=== PATIENT | female | born 2000 | race Caucasian/White ===

== ENCOUNTER 2019-05-01 20:56 | Emergency (ER) | payer OTHER, SELFPAY ==
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
[2019-05-01 23:10] VITALS: BP 105/74; TEMP 97.9; O2SAT 100
== END 2019-05-01 21:27 | disposition left against medical advice (07) ==
LOC: ER 20:56
DX: Z02.9 Encounter for administrative examinations, unspecified (principal)
CPT/HCPCS: 99281

== ENCOUNTER 2020-03-14 16:07 | Emergency (ER) | payer OTHER, SELFPAY ==
[2020-03-14] MEDS ORDERED: LIDOCAINE 1% 20 ML MDV ONE (16:36)
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
[2020-03-14] MEDS ORDERED: TETANUS & DIPHTHERIA TOX,ADULT 0.5 ML VIAL ONE (17:14)
[2020-03-14 18:08] VITALS: TEMP 98.6
[2020-03-14 18:11] VITALS: BP 103/57; O2SAT 100
== END 2020-03-14 17:45 | disposition home or self-care (01) ==
LOC: ER 16:07
PROC: 0JQ10ZZ Repair Face Subcutaneous Tissue and Fascia, Open Approach (ICD-10-PCS; principal; 2020-03-14)
DX: O9A.312 Physical abuse complicating pregnancy, second trimester (principal); S01.81XA Laceration without foreign body of other part of head, initial encounter; Z3A.21 21 weeks gestation of pregnancy; Y07.03 Male partner, perpetrator of maltreatment and neglect; Z23 Encounter for immunization
CPT/HCPCS: 90471; 90714; 99283

== ENCOUNTER 2022-03-13 17:45 | Emergency (ER) | payer OTHER ==
--- OUTSIDE RECORDS SUMMARY | 2022-03-13 17:52 | XMS REPORT | Continuity of Care Document ---
:2000 Author Organization [facility] t Address [address] [place] [address] Care Team Providers Name Role Phone LITO BUITRAGO Primary Care Physician Unavailable WILLI BARON Attending Clinician Unavailable Ronaldo Falk Attending Clinician RONALDO HERRERA Attending Clinician Unavailable Doctor Unassigned, [place] Attending Clinician Unavailable Lab, Adc Fam Pob I Attending Clinician Unavailable Jignesh Ramirez Attending Clinician JIGNESH ACOSTA Attending Clinician Unavailable CHARIS LOPEZ Attending Clinician Unavailable Charis Anthony Attending Clinician [phone] Visit, MarcialRmchdeborah Nurse Attending Clinician Unavailable Afshan Barry MD Attending Clinician [phone] Ultrasound, Zac-Mfelli Attending Clinician Unavailable Tim Cerna MD Attending Clinician Afshan Barry MD Admitting Clinician [phone] Payers Payer Name Policy Type Policy Number Effective Date Expiration Date [facility] [id number] 2020 CHOICE MEDICAID 00:00:00 MEDICAID OF [place] [id number] 2019 00:00:00 MEDICAID PENDING PENDING 2019 00:00:00 Problems Condition Condition Condition Status Onset Resolution Last Treating Co mments Source Name Details Category Date Date Treatment Clinician Date Need for Need for Disease Active Unive rs HPV HPV 7-20 ity of vaccinatio vaccinatio 00:00: [place] 00 Medical Branch BMI BMI Disease Active Univers 29.0-29.9, 29.0-29.9, 7-20 it y of adult adult 00:00: [place] [facility] Rash of Rash of Disease Active Univers entire entire 7-20 ity of body body 00:00: [place] [address] Medical Branch Screening Screening Disease Active 2019-08 Uni vers examinatio examinatio 1-23 it y of n for STD n for STD [place] ([place]ually (sexually [address] [place] [address] transmitte transmitte Br anch d disease) d disease) Positive Positive Disease Active 2019-08 Overview: Un cyril GBS test GBS test 0-16 Address ity o f 00:00: intrapart [place] [address] um Medical Branch Marijuana Marijuana Disease Active Uni vers use use 6-23 ity of 00:00: [place] [address] Medical Branch BV BV Disease Active Overview: Univer s (bacterial (bacterial 4 Formattin ity of vaginosis) vaginosis) 00:00: g of this [place] 00 note Medical might be Branch different from the original. Identifie d on pap treat 2nd trimester -patient declined symptoms, no treatment at this time Rubella Rubella Disease Active Overview: Univ ers non-immune non-immune 4 Formattin ity of status, status, 00:00: g of this [place] antepartum antepartum 00 note Me dical might be Branch different from the original. Address pp Multiparit Multiparit Disease Active U nivers y y 3-31 ity of 00:00: [place] [address] Medical Branch History of History of Disease Active Overview : Univers 3-31 X1 due to ity of section section 00:00: breech [place] [address] presentat Medical ion A Branch lower abdominal transvers e skin incision Nausea and Nausea and Disease Active U nivers vomiting vomiting 3-31 ity of during during 00:00: [place] [facility] Breech Breech Disease Active Univers presentati presentati 3-26 it y of on, single on, single [place] 00 Medical unspecifie unspecifie Br anch d fetus d fetus 39 weeks 39 weeks Disease Active Unive rs gestation gestation 3-25 ity of of of 00:00: [place] 00 [facility] Supervisio Supervisio Disease Active U nivers n of high n of high 9-12 ity of risk risk 00:00: [place] , , 00 Me dical antepartum antepartum Br anch Rubella Rubella Disease Active Univers non-immune non-immune 8-19 it y of status, status, 00:00: [place] antepartum antepartum 00 Me dicwa Branch High-risk High-risk Disease Active Uni vers , , 8-15 it y of first first 00:00: [place] trimester trimester 00 [facility] Nausea and Nausea and Disease Active U nivers vomiting vomiting 8-15 ity of during during 00:00: [place] 00 [facility] Allergies, Adverse Reactions, Alerts Allergy Allergy Status Severity Reaction(s) Onset Inactive Treating Comm ents Source Name Type Date Date Clinician NO KNOWN Drug Active Univers ALLERGIE Class ity of S [facility] [place] [facility] Social History Social Habit Start Date Stop Date Quantity Comments Source ASSERTION 2019-09-20 University of 00:00:00 [facility] [place] [facility] Exposure to Not sure [facility] SARS-CoV-2 [facility] (event) [place] Tobacco use and 2021-03-08 2021-03-08 Never used Universit y of exposure 00:00:00 00:00:00 [facility] [place] [facility] Alcohol intake 2021-03-08 2021-03-08 Current University 00:00:00 00:00:00 non-drinker of [facility] alcohol (finding) [place] Tobacco Comment 2018-03-20 2018-03-20 education Universit y of 00:00:00 00:00:00 provided [facility] [place] [facility] History of 2015 2017-12-04 Cigarette Smoker Universi ty of tobacco use 00:00:00 00:00:00 [facility] [place] [facility] Sex Assigned At [birth year] Universit y of 00:00:00 00:00:00 [facility] [place] [facility] Smoking Status Start Date Stop Date Source Former smoker 2021-03-08 00:00:00 2021-03-08 00:00:00 Universi ty of [facility] [place] [facility] Medications Ordered Filled Start Stop Current Ordering Indication Dosage Frequency Signature Comments Components Source Medication Medication Date Date Medication? Clinician (SIG) Name Name medroxyPROG 2021- No [id number] 150mg Univers ESTERone 03-08 ity of (DEPO-PROVE 19:45: 19:44 [place] RA) 00 :00 Medical injection Branch 150 mg medroxyPROG 2021- No [id number] 150mg 150 mg, Univers ESTERone 03-08 Intramuscu ity of (DEPO-PROVE 19:45: 19:44 lar, [place] RA) 00 :00 [id number], Medical injection 4 doses, Branch 150 mg First dose on Sun03/08/21 at 1445, Last dose on Sun11/15/21 at 1445, Routine medroxyPROG 2021- No [id number] 150mg Univers ESTERone 03-08 ity of (DEPO-PROVE 19:45: 19:44 [place] RA) 00 :00 Medical injection Branch 150 mg medroxyPROG 2021- No [id number] 150mg 150 mg, Univers ESTERone 03-08 Intramuscu ity of (DEPO-PROVE 19:45: 19:44 lar, [place] RA) 00 :00 [id number], Medical injection 4 doses, Branch 150 mg First dose on Sun03/08/21 at 1445, Last dose on Sun11/15/21 at 1445, Routine predniSONE Yes TAKE Univers 20 mg 7-24 TABLETS BY ity of tablet 00:00: MOUTH TAKE [place] 00 2 DAY 1, Medical AND 1 FOR Branch 4 DAYS triamcinolo Yes APPLY 1 Uni vers ne 7-24 APPLICATIO ity of acetonide 00:00: N ON THE [place] 0.1 % 00 SKIN TWICE Medical ointment A DAY Branch predniSONE Yes TAKE Univers 20 mg 7-24 TABLETS BY ity of tablet 00:00: MOUTH TAKE [place] 00 2 DAY 1, Medical AND 1 FOR Branch 4 DAYS triamcinolo Yes APPLY 1 Uni vers ne 7-24 APPLICATIO ity of acetonide 00:00: N ON THE [place] 0.1 % 00 SKIN TWICE Medical ointment A DAY Branch diphenhydrA 2019-08 Yes [id number] 25mg Take 1 Univers MINE 25 mg 1-02 tablet by ity of tablet 00:00: mouth [place] 00 every 6 Medical (six) Branch hours as needed for Sleep or Itching. HYDROcodone 2019-08 Yes [id number] 1{tbl} Take 1 Un cyril -acetaminop 1-02 tablet by ity of hen 5-325 00:00: mouth [place] mg tablet 00 every 6 Medical (six) Branch hours as needed for Pain (scale 7-10) for up to 10 doses. Indication s: acute pain magnesium 2019-08 Yes [id number] 30mL Take 30 mL Univers hydroxide 1-02 by mouth ity of 400 mg/5 mL 00:00: once daily [place] suspension 00 as needed Medi veronica for Branch Constipati on. simethicone 2019-08 Yes [id number] 160mg Take 2 Univers 80 mg 1-02 tablets by ity of chewable 00:00: mouth [place] tablet 00 after Medical meals and Branch at bedtime as needed for Gas. 2019-08 Yes [id number] 1{tbl} Take 1 Univers vitamin 1-02 tablet by ity of w/FA tablet 00:00: mouth [place] 00 daily. Medical Branch docusate 2019-08 Yes [id number] 240mg Take 1 U nivers calcium 240 1-02 capsule by it y of mg capsule 00:00: mouth once [place] 00 daily as Medical needed for Branch Constipati on. ferrous 2019-08 Yes [id number] 325mg Take 1 Un cyril sulfate 325 1-02 tablet by ity of mg (65 mg 00:00: mouth 2 [place] iron) 00 (two) Medical tablet times Branch daily. ibuprofen 2019-08 Yes [id number] 600mg Take 1 Univers 600 mg 1-02 tablet by ity of tablet 00:00: mouth [place] 00 every 6 Medical (six) Branch hours as needed (Pain). Take with food or milk. diphenhydrA 2019-08 Yes [id number] 25mg Take 1 Univers MINE 25 mg 1-02 tablet by ity of tablet 00:00: mouth [place] 00 every 6 Medical (six) Branch hours as needed for Sleep or Itching. HYDROcodone 2019-08 Yes [id number] 1{tbl} Take 1 Un cyril -acetaminop 1-02 tablet by ity of hen 5-325 00:00: mouth [place] mg tablet 00 every 6 Medical (six) Branch hours as needed for Pain (scale 7-10) for up to 10 doses. Indication s: acute pain magnesium 2019-08 Yes [id number] 30mL Take 30 mL Univers hydroxide 1-02 by mouth ity of 400 mg/5 mL 00:00: once daily [place] suspension 00 as needed Medi veronica for Branch Constipati on. simethicone 2019-08 Yes [id number] 160mg Take 2 Univers 80 mg 1-02 tablets by ity of chewable 00:00: mouth [place] tablet 00 after Medical meals and Branch at bedtime as needed for Gas. 2019-08 Yes [id number] 1{tbl} Take 1 Univers vitamin 1-02 tablet by ity of w/FA tablet 00:00: mouth [place] 00 daily. Medical Branch docusate 2019-08 Yes [id number] 240mg Take 1 U nivers calcium 240 1-02 capsule by it y of mg capsule 00:00: mouth once [place] 00 daily as Medical needed for Branch Constipati on. ferrous 2019-08 Yes [id number] 325mg Take 1 Un cyril sulfate 325 1-02 tablet by ity of mg (65 mg 00:00: mouth 2 [place] iron) 00 (two) Medical tablet times Branch daily. ibuprofen 2019-08 Yes [id number] 600mg Take 1 Univers 600 mg 1-02 tablet by ity of tablet 00:00: mouth [place] 00 every 6 Medical (six) Branch hours as needed (Pain). Take with food or milk. diphenhydrA 2019-08 Yes [id number] 25mg Take 1 Univers MINE 25 mg 1-02 tablet by ity of tablet 00:00: mouth [place] 00 every 6 Medical (six) Branch hours as needed for Sleep or Itching. HYDROcodone 2019-08 Yes [id number] 1{tbl} Take 1 Un cyril -acetaminop 1-02 tablet by ity of hen 5-325 00:00: mouth [place] mg tablet 00 every 6 Medical (six) Branch hours as needed for Pain (scale 7-10) for up to 10 doses. Indication s: acute pain magnesium 2019-08 Yes [id number] 30mL Take 30 mL Univers hydroxide 1-02 by mouth ity of 400 mg/5 mL 00:00: once daily [place] suspension 00 as needed Medi veronica for Branch Constipati on. simethicone 2019-08 Yes [id number] 160mg Take 2 Univers 80 mg 1-02 tablets by ity of chewable 00:00: mouth [place] tablet 00 after Medical meals and Branch at bedtime as needed for Gas. 2019-08 Yes [id number] 1{tbl} Take 1 Univers vitamin 1-02 tablet by ity of w/FA tablet 00:00: mouth [place] 00 daily. Medical Branch docusate 2019-08 Yes [id number] 240mg Take 1 U nivers calcium 240 1-02 capsule by it y of mg capsule 00:00: mouth once [place] 00 daily as Medical needed for Branch Constipati on. ferrous 2019-08 Yes [id number] 325mg Take 1 Un cyril sulfate 325 1-02 tablet by ity of mg (65 mg 00:00: mouth 2 [place] iron) 00 (two) Medical tablet times Branch daily. ibuprofen 2019-08 Yes [id number] 600mg Take 1 Univers 600 mg 1-02 tablet by ity of tablet 00:00: mouth [place] 00 every 6 Medical (six) Branch hours as needed (Pain). Take with food or milk. diphenhydrA 2019-08 Yes [id number] 25mg Take 1 Univers MINE 25 mg 1-02 tablet by ity of tablet 00:00: mouth [place] 00 every 6 Medical (six) Branch hours as needed for Sleep or Itching. HYDROcodone 2019-08 Yes [id number] 1{tbl} Take 1 Un cyril -acetaminop 1-02 tablet by ity of hen 5-325 00:00: mouth [place] mg tablet 00 every 6 Medical (six) Branch hours as needed for Pain (scale 7-10) for up to 10 doses. Indication s: acute pain magnesium 2019-08 Yes [id number] 30mL Take 30 mL Univers hydroxide 1-02 by mouth ity of 400 mg/5 mL 00:00: once daily [place] suspension 00 as needed Medi veronica for Branch Constipati on. simethicone 2019-08 Yes [id number] 160mg Take 2 Univers 80 mg 1-02 tablets by ity of chewable 00:00: mouth [place] tablet 00 after Medical meals and Branch at bedtime as needed for Gas. 2019-08 Yes [id number] 1{tbl} Take 1 Univers vitamin 1-02 tablet by ity of w/FA tablet 00:00: mouth [place] 00 daily. Medical Branch docusate 2019-08 Yes [id number] 240mg Take 1 U nivers calcium 240 1-02 capsule by it y of mg capsule 00:00: mouth once [place] 00 daily as Medical needed for Branch Constipati on. ferrous 2019-08 Yes [id number] 325mg Take 1 Un cyril sulfate 325 1-02 tablet by ity of mg (65 mg 00:00: mouth 2 [place] iron) 00 (two) Medical tablet times Branch daily. ibuprofen 2019-08 Yes [id number] 600mg Take 1 Univers 600 mg 1-02 tablet by ity of tablet 00:00: mouth [place] 00 every 6 Medical (six) Branch hours as needed (Pain). Take with food or milk. diphenhydrA 2019-08 Yes [id number] 25mg Take 1 Univers MINE 25 mg 1-02 tablet by ity of tablet 00:00: mouth [place] 00 every 6 Medical (six) Branch hours as needed for Sleep or Itching. HYDROcodone 2019-08 Yes [id number] 1{tbl} Take 1 Un cyril -acetaminop 1-02 tablet by ity of hen 5-325 00:00: mouth [place] mg tablet 00 every 6 Medical (six) Branch hours as needed for Pain (scale 7-10) for up to 10 doses. Indication s: acute pain magnesium 2019-08 Yes [id number] 30mL Take 30 mL Univers hydroxide 1-02 by mouth ity of 400 mg/5 mL 00:00: once daily [place] suspension 00 as needed Medi veronica for Branch Constipati on. simethicone 2019-08 Yes [id number] 160mg Take 2 Univers 80 mg 1-02 tablets by ity of chewable 00:00: mouth [place] tablet 00 after Medical meals and Branch at bedtime as needed for Gas. 2019-08 Yes [id number] 1{tbl} Take 1 Univers vitamin 1-02 tablet by ity of w/FA tablet 00:00: mouth [place] 00 daily. Medical Branch docusate 2019-08 Yes [id number] 240mg Take 1 U nivers calcium 240 1-02 capsule by it y of mg capsule 00:00: mouth once [place] 00 daily as Medical needed for Branch Constipati on. ferrous 2019-08 Yes [id number] 325mg Take 1 Un cyril sulfate 325 1-02 tablet by ity of mg (65 mg 00:00: mouth 2 [place] iron) 00 (two) Medical tablet times Branch daily. ibuprofen 2019-08 Yes [id number] 600mg Take 1 Univers 600 mg 1-02 tablet by ity of tablet 00:00: mouth [place] 00 every 6 Medical (six) Branch hours as needed (Pain). Take with food or milk. diphenhydrA 2019-08- No [id number] 25mg Take 1 Univers MINE 25 mg 08-0720 tablet by ity of tablet 00:00: 00:00 mouth [place] 00 :00 every 6 Medical (six) Branch hours as needed for Sleep or Itching. HYDROcodone 2019-08- No [id number] 1{tbl} Take 1 U nivers -acetaminop 08-0720 tablet by it y of hen 5-325 00:00: 00:00 mouth [place] mg tablet 00 :00 every 6 Medical (six) Branch hours as needed for Pain (scale 7-10) for up to 10 doses. Indication s: acute pain magnesium 2019-08 No [id number] 30mL Take 30 mL Univers hydroxide 08-07 by mouth ity o f 400 mg/5 mL 00:00: 00:00 once daily [place] suspension 00 :00 as needed Medi veronica for Branch Constipati on. simethicone 2019-08 No [id number] 160mg Take 2 Univers 80 mg 08-0720 tablets by ity of chewable 00:00: 00:00 mouth [place] tablet 00 :00 after Medical meals and Branch at bedtime as needed for Gas. 2019-08- No [id number] 1{tbl} Take 1 Univers vitamin 08-0720 tablet by ity of w/FA tablet 00:00: 00:00 mouth [place] 00 :00 daily. Medical Branch docusate 2019-08- No [id number] 240mg Take 1 Univers calcium 240 08-07 capsule by i ty of mg capsule 00:00: 00:00 mouth once [place] 00 :00 daily as Medical needed for Branch Constipati on. ferrous 2019-08- No [id number] 325mg Take 1 U nivers sulfate 325 08-0720 tablet by it y of mg (65 mg 00:00: 00:00 mouth 2 [place] iron) 00 :00 (two) Medical tablet times Branch daily. ibuprofen 2019-08- No [id number] 600mg Take 1 Univers 600 mg 08-0720 tablet by ity of tablet 00:00: 00:00 mouth [place] 00 :00 every 6 Medical (six) Branch hours as needed (Pain). Take with food or milk. diphenhydrA 2019-08 No [id number] 25mg Take 1 Univers MINE 25 mg 08-0720 tablet by ity of tablet 00:00: 00:00 mouth [place] 00 :00 every 6 Medical (six) Branch hours as needed for Sleep or Itching. HYDROcodone 2019-08- No [id number] 1{tbl} Take 1 U nivers -acetaminop 08-0720 tablet by it y of hen 5-325 00:00: 00:00 mouth [place] mg tablet 00 :00 every 6 Medical (six) Branch hours as needed for Pain (scale 7-10) for up to 10 doses. Indication s: acute pain magnesium 2019-08- No [id number] 30mL Take 30 mL Univers hydroxide 08-07 by mouth ity o f 400 mg/5 mL 00:00: 00:00 once daily [place] suspension 00 :00 as needed Medi veronica for Branch Constipati on. simethicone 2019-08- No [id number] 160mg Take 2 Univers 80 mg 08-0720 tablets by ity of chewable 00:00: 00:00 mouth [place] tablet 00 :00 after Medical meals and Branch at bedtime as needed for Gas. 2019-08- No [id number] 1{tbl} Take 1 Univers vitamin 08-0720 tablet by ity of w/FA tablet 00:00: 00:00 mouth [place] 00 :00 daily. Medical Branch docusate 2019-08- No [id number] 240mg Take 1 Univers calcium 240 08-07 capsule by i ty of mg capsule 00:00: 00:00 mouth once [place] 00 :00 daily as Medical needed for Branch Constipati on. ferrous 2019-08- No [id number] 325mg Take 1 U nivers sulfate 325 08-0720 tablet by it y of mg (65 mg 00:00: 00:00 mouth 2 [place] iron) 00 :00 (two) Medical tablet times Branch daily. ibuprofen 2019-08 No [id number] 600mg Take 1 Univers 600 mg 08-0720 tablet by ity of tablet 00:00: 00:00 mouth [place] 00 :00 every 6 Medical (six) Branch hours as needed (Pain). Take with food or milk. diphenhydrA 2019-08 No [id number] 25mg Take 1 Univers MINE 25 mg 08-0720 tablet by ity of tablet 00:00: 00:00 mouth [place] 00 :00 every 6 Medical (six) Branch hours as needed for Sleep or Itching. HYDROcodone 2019-08- No [id number] 1{tbl} Take 1 U nivers -acetaminop 08-0720 tablet by it y of hen 5-325 00:00: 00:00 mouth [place] mg tablet 00 :00 every 6 Medical (six) Branch hours as needed for Pain (scale 7-10) for up to 10 doses. Indication s: acute pain magnesium 2019-08 No [id number] 30mL Take 30 mL Univers hydroxide 08-07 by mouth ity o f 400 mg/5 mL 00:00: 00:00 once daily [place] suspension 00 :00 as needed Medi veronica for Branch Constipati on. simethicone 2019-08 No [id number] 160mg Take 2 Univers 80 mg 08-07 tablets by ity of chewable 00:00: 00:00 mouth [place] tablet 00 :00 after Medical meals and Branch at bedtime as needed for Gas. 2019-08- No [id number] 1{tbl} Take 1 Univers vitamin 08-07 tablet by ity of w/FA tablet 00:00: 00:00 mouth [place] 00 :00 daily. Medical Branch docusate 2019-08- No [id number] 240mg Take 1 Univers calcium 240 08-07 capsule by i ty of mg capsule 00:00: 00:00 mouth once [place] 00 :00 daily as Medical needed for Branch Constipati on. ferrous 2019-08- No [id number] 325mg Take 1 U nivers sulfate 325 08-07 tablet by it y of mg (65 mg 00:00: 00:00 mouth 2 [place] iron) 00 :00 (two) Medical tablet times Branch daily. ibuprofen 2019-08- No [id number] 600mg Take 1 Univers 600 mg 08-07 tablet by ity of tablet 00:00: 00:00 mouth [place] 00 :00 every 6 Medical (six) Branch hours as needed (Pain). Take with food or milk. diphenhydrA 2019-08 No [id number] 25mg Take 1 Univers MINE 25 mg 08-0720 tablet by ity of tablet 00:00: 00:00 mouth [place] 00 :00 every 6 Medical (six) Branch hours as needed for Sleep or Itching. HYDROcodone 2019-08- No [id number] 1{tbl} Take 1 U nivers -acetaminop 08-0720 tablet by it y of hen 5-325 00:00: 00:00 mouth [place] mg tablet 00 :00 every 6 Medical (six) Branch hours as needed for Pain (scale 7-10) for up to 10 doses. Indication s: acute pain magnesium 2019-08 No [id number] 30mL Take 30 mL Univers hydroxide 08-07 by mouth ity o f 400 mg/5 mL 00:00: 00:00 once daily [place] suspension 00 :00 as needed Medi veronica for Branch Constipati on. simethicone 2019-08 No [id number] 160mg Take 2 Univers 80 mg 08-0720 tablets by ity of chewable 00:00: 00:00 mouth [place] tablet 00 :00 after Medical meals and Branch at bedtime as needed for Gas. 2019-08- No [id number] 1{tbl} Take 1 Univers vitamin 08-0720 tablet by ity of w/FA tablet 00:00: 00:00 mouth [place] 00 :00 daily. Medical Branch docusate 2019-08 No [id number] 240mg Take 1 Univers calcium 240 08-07 capsule by i ty of mg capsule 00:00: 00:00 mouth once [place] 00 :00 daily as Medical needed for Branch Constipati on. ferrous 2019-08 No [id number] 325mg Take 1 U nivers sulfate 325 08-0720 tablet by it y of mg (65 mg 00:00: 00:00 mouth 2 [place] iron) 00 :00 (two) Medical tablet times Branch daily. ibuprofen 2019-08 No [id number] 600mg Take 1 Univers 600 mg 08-0720 tablet by ity of tablet 00:00: 00:00 mouth [place] 00 :00 every 6 Medical (six) Branch hours as needed (Pain). Take with food or milk. medroxyPROG 2019-08 Yes 150mg 150 mg, Un cyril ESTERone 08-06 Intramuscu ity o f (DEPO-PROVE 13:45: lar, [place] RA) 00 [id number], Medical injection First dose Bran ch 150 mg on 06/06/20 at 0745, Until Discontinu ed, Routine ibuprofen 2019-08 Yes 600mg 600 mg, [facility] ers (IBU) 08-06 Oral, Q6H, ity of tablet 600 12:00: First dose [place] mg 00 on [facility] 06/06/20 at Branch 0600, Until Discontinu ed, Routine lactated 2019-08 2020- No 1000mL at 125 [facility] ringers IV 08-06 1101 mL/hr, ity of infusion 08:45: 11:35 1,000 mL, [place] 1,000 mL 00 :00 IV Medical Infusion, [place] ONCE, 1 dose, 06/06/20 at 0245, Routine rho(D) 2019-08 Yes 300ug 300 mcg, Univer s immune 08-06 Intramuscu ity of globulin 08:44: [place], ONCE, [place] (RHOGAM) 12 For 1 Medical syringe 300 dose, Branch mcg Conditiona l, Routine HYDROcodone 2019-08 Yes 2{tbl} 2 tablet, Univers -acetaminop 08-06 Oral, ity of hen (NORCO 08:44: Q6HPRN, [place] 5) 5-325 mg 02 Starting Medi veronica tablet 2 [place] Branch tablet 06/06/20 at 0244, Until Discontinu ed, Routine, Pain (scale 7-10), If uncontroll ed by Ibuprofen HYDROcodone 2019-08 Yes 1{tbl} 1 tablet, Univers -acetaminop 08-06 Oral, ity of hen (NORCO 08:44: Q6HPRN, [place] 5) 5-325 mg 02 Starting Medi veronica tablet 1 [place] Branch tablet 06/06/20 at 0244, Until Discontinu ed, Routine, Pain (scale 4-6), If uncontroll ed by Ibuprofen human 2019-08 Yes .5mL 0.5 mL, Univers papillomav 08-06 Intramuscu ity of vac,9-herlinda(P 08:44: lar, [place] F) 02 ONCE-PRIOR Medical (GARDASIL-9 TO Branch ) syringe DISCHARGE, 0.5 mL 1 dose, Starting 06/06/20 at 0244, Until Discontinu ed, Routine, Give vaccine prior to discharge ondansetron 2019-08 Yes 4mg 4 mg, Slow Univers (ZOFRAN 08-06 IV Push, ity of (PF)) 08:44: Q8HPRN, [place] injection 4 02 Starting Medi veronica mg Sun Branch 06/06/20 at 0244, Until Discontinu ed, Routine, Nausea and Vomiting (N/V) simethicone 2019-08 Yes 160mg 160 mg, Un cyril (GAS RELIEF 08-06 Oral, ity of (SIMETHICON 08:44: PC+HSPRN, [place] E)) 02 Starting Medical chewable [place] Branch tablet 160 06/06/20 at mg 0244, Until Discontinu ed, Routine, Gas magnesium 2019-08 Yes 30mL 30 mL, Univer s hydroxide 08-06 Oral, ity of (MILK OF 08:44: QDAILYPRN, [place] MAGNESIA) 02 Starting Medica l 400 mg/5 mL Sun Branch suspension 06/06/20 at 30 mL 0244, Until Discontinu ed, Routine, Constipati on diphenhydrA 2019-08 Yes 25mg 25 mg, IV U nivers MINE-0.9 % 08-06 Piggyback, ity of sod.chlr 08:44: Administer [place] (BENADRYL) 01 over 30 Medica l 25 mg/50 mL Minutes, Bran ch piggyback Q6HPRN, 1 25 mg dose, Starting 06/06/20 at 0244, Until Discontinu ed, Routine, Itching diphenhydrA 2019-08 Yes 25mg 25 mg, Univ ers MINE 08-06 Oral, ity of (BENADRYL) 08:44: Q6HPRN, [place] tablet 25 01 Starting Medica l mg Sun Branch 06/06/20 at 0244, Until Discontinu ed, Routine, Sleep, Itching bisacodyL 2019-08 Yes 10mg 10 mg, Univer s (DULCOLAX) 08-06 Rectal, ity of suppository 08:44: QDAILYPRN, [place] 10 mg 01 Starting Medical Sun Branch 06/06/20 at 0244, Until Discontinu ed, Routine, Constipati on docusate 2019-08 Yes 240mg 240 mg, Unive rs calcium 08-06 Oral, ity of (SURFAK) 08:44: QDAILYPRN, [place] capsule 240 01 Starting Medi veronica mg Sun Branch 06/06/20 at 0244, Until Discontinu ed, Routine, Constipati on lactated 2019-08 No 1000mL at 125 Univ ers ringers IV 08-06 mL/hr, ity of infusion 04:45: 08:44 1,000 mL, [place] 1,000 mL 00 :13 IV Medical Infusion, Branch CONTINUOUS , Starting 06/05/20 at 2345, Until [facility] 06/06/20 at 0244, Routine ceFAZolin 2019-08 No 2000mg 2 g (2,000 Univers in dextrose 08-06 mg), IV ity of (iso-os) 04:43: 05:02 [place]back, [place] (ANCEF) 2 31 :00 O.R. Medical gram/100 mL HOLDING Branc h Piggyback 2 ONCE, 1 g dose, Starting 06/05/20 at 2343, Until Discontinu ed, 100 mL
Reas on for Anti-Infec tive: Surgical Prophylaxi s
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
Duration of therapy: within 24 hours of surgery sodium 2019-08- No 30mL 30 mL, Univers citrate-cit 08-06 Oral, ity of keri acid 04:43: 05:02 PRE-PROCED [place] (BICITRA[place] 31 :00 URE ONCE, Medic al 500-334 1 dose, Branch mg/5 mL Starting solution 30 Sat mL 06/05/20 at 2343, Until Discontinu ed, Routine, Surgery butorphanol 2019-08 No 1mg 1 mg, [facility] ers (STADOL) 08-06 Intravenou ity of injection 1 03:45: 03:04 s, ONCE, 1 [place] mg 00 :00 dose, Sat Medical 06/05/20 Branch at 2245, Routine butorphanol 2019-08 No 1mg 1 mg, [facility] ers (STADOL) 006-05 Intravenou ity of injection 1 22:30: 22:29 s, ONCE, 1 [place] mg 00 :00 dose, Sat Medical 06/05/20 Branch at 1730, Routine [id number] IV 2019-08 2020- No 1000mL at 125 Uni vers infusion 11-01 mL/hr, IV ity o f 1,000 mL 14:30: 08:44 Infusion, [place] as 00 :13 CONTINUOUS Medical , Starting Branch 06/05/20 at 0930, Until 06/06/20 at 0244, Routine proMETHazin 2020-0 Yes [id number] 25mg Take 1 Univers e 25 mg 6-23 tablet by ity of tablet 00:00: mouth [place] 00 every 6 Medical (six) Branch hours as needed for Nausea and Vomiting (N/V). proMETHazin 2020-0 Yes [id number] 25mg Take 1 Univers e 25 mg 6-23 tablet by ity of tablet 00:00: mouth [place] 00 every 6 Medical (six) Branch hours as needed for Nausea and Vomiting (N/V). proMETHazin 2020-0 Yes [id number] 25mg Take 1 Univers e 25 mg 6-23 tablet by ity of tablet 00:00: mouth [place] 00 every 6 Medical (six) Branch hours as needed for Nausea and Vomiting (N/V). proMETHazin 2020-0 Yes [id number] 25mg Take 1 Univers e 25 mg 6-23 tablet by ity of tablet 00:00: mouth [place] 00 every 6 Medical (six) Branch hours as needed for Nausea and Vomiting (N/V). proMETHazin 2020-0 Yes [id number] 25mg Take 1 Univers e 25 mg 6-23 tablet by ity of tablet 00:00: mouth [place] 00 every 6 Medical (six) Branch hours as needed for Nausea and Vomiting (N/V). proMETHazin 2020-0 Yes [id number] 25mg Take 1 Univers e 25 mg 6-23 tablet by ity of tablet 00:00: mouth [place] 00 every 6 Medical (six) Branch hours as needed for Nausea and Vomiting (N/V). proMETHazin 2020-0 Yes [id number] 25mg Take 1 Univers e 25 mg 6-23 tablet by ity of tablet 00:00: mouth [place] 00 every 6 Medical (six) Branch hours as needed for Nausea and Vomiting (N/V). proMETHazin 2020-0 Yes [id number] 25mg Take 1 Univers e 25 mg 6-23 tablet by ity of tablet 00:00: mouth [place] 00 every 6 Medical (six) Branch hours as needed for Nausea and Vomiting (N/V). proMETHazin 2020-0 Yes [id number] 25mg Take 1 Univers e 25 mg 6-23 tablet by ity of tablet 00:00: mouth [place] 00 every 6 Medical (six) Branch hours as needed for Nausea and Vomiting (N/V). proMETHazin 2020-0 Yes [id number] 25mg Take 1 Univers e 25 mg 6-23 tablet by ity of tablet 00:00: mouth [place] 00 every 6 Medical (six) Branch hours as needed for Nausea and Vomiting (N/V). proMETHazin 2020-0 Yes [id number] 25mg Take 1 Univers e 25 mg 6-23 tablet by ity of tablet 00:00: mouth [place] 00 every 6 Medical (six) Branch hours as needed for Nausea and Vomiting (N/V). proMETHazin 2020-0 Yes [id number] 25mg Take 1 Univers e 25 mg 6-23 tablet by ity of tablet 00:00: mouth [place] 00 every 6 Medical (six) Branch hours as needed for Nausea and Vomiting (N/V). proMETHazin 2020-0 Yes [id number] 25mg Take 1 Univers e 25 mg 6-23 tablet by ity of tablet 00:00: mouth [place] 00 every 6 Medical (six) Branch hours as needed for Nausea and Vomiting (N/V). proMETHazin 2020-0 Yes [id number] 25mg Take 1 Univers e 25 mg 6-23 tablet by ity of tablet 00:00: mouth [place] 00 every 6 Medical (six) Branch hours as needed for Nausea and Vomiting (N/V). proMETHazin 2020-0 Yes [id number] 25mg Take 1 Univers e 25 mg 6-23 tablet by ity of tablet 00:00: mouth [place] 00 every 6 Medical (six) Branch hours as needed for Nausea and Vomiting (N/V). proMETHazin 2020-0 Yes [id number] 25mg Take 1 Univers e 25 mg 6-23 tablet by ity of tablet 00:00: mouth [place] 00 every 6 Medical (six) Branch hours as needed for Nausea and Vomiting (N/V). proMETHazin 2020-0 Yes [id number] 25mg Take 1 Univers e 25 mg 6-23 tablet by ity of tablet 00:00: mouth [place] 00 every 6 Medical (six) Branch hours as needed for Nausea and Vomiting (N/V). proMETHazin 2020-0 Yes [id number] 25mg Take 1 Univers e 25 mg 6-23 tablet by ity of tablet 00:00: mouth [place] 00 every 6 Medical (six) Branch hours as needed for Nausea and Vomiting (N/V). proMETHazin 2020-0 Yes [id number] 25mg Take 1 Univers e 25 mg 6-23 tablet by ity of tablet 00:00: mouth [place] 00 every 6 Medical (six) Branch hours as needed for Nausea and Vomiting (N/V). proMETHazin 2020-0 Yes [id number] 25mg Take 1 Univers e 25 mg 6-23 tablet by ity of tablet 00:00: mouth [place] 00 every 6 Medical (six) Branch hours as needed for Nausea and Vomiting (N/V). proMETHazin 2020-0 Yes [id number] 25mg Take 1 Univers e 25 mg 6-23 tablet by ity of tablet 00:00: mouth [place] 00 every 6 Medical (six) Branch hours as needed for Nausea and Vomiting (N/V). proMETHazin 2020-0 2020- No [id number] 25mg Take 1 Univers e 25 mg 6-23 07-20 tablet by ity of tablet 00:00: 00:00 mouth [place] 00 :00 every 6 Medical (six) Branch hours as needed for Nausea and Vomiting (N/V). proMETHazin 2019-0 2020- No [id number] 25mg Take 1 Univers e 25 mg 6-23 07-20 tablet by ity of tablet 00:00: 00:00 mouth [place] 00 :00 every 6 Medical (six) Branch hours as needed for Nausea and Vomiting (N/V). proMETHazin 2020-0 2020- No [id number] 25mg Take 1 Univers e 25 mg 6-23 07-20 tablet by ity of tablet 00:00: 00:00 mouth [place] 00 :00 every 6 Medical (six) Branch hours as needed for Nausea and Vomiting (N/V). proMETHazin 2020-0 2020- No [id number] 25mg Take 1 Univers e 25 mg 6-23 07-20 tablet by ity of tablet 00:00: 00:00 mouth [place] 00 :00 every 6 Medical (six) Branch hours as needed for Nausea and Vomiting (N/V). Miscellaneo 2020-0 Yes [id number] Use as [facility] directed ity o f Supply 00:00: [place] (BLOOD 00 Medical PRESSURE Branch CUFF) Misc Miscellaneo 2020-0 Yes [id number] Use as [facility] directed ity o f Supply 00:00: [place] (BLOOD 00 Medical PRESSURE Branch CUFF) Misc Miscellaneo 2020-0 Yes [id number] Use as [facility] directed ity o f Supply 00:00: [place] (BLOOD 00 Medical PRESSURE Branch CUFF) Misc Miscellaneo 2020-0 Yes [id number] Use as [facility] directed ity o f Supply 00:00: [place] (BLOOD 00 Medical PRESSURE Branch CUFF) Misc Miscellaneo 2020-0 Yes [id number] Use as [facility] directed ity o f Supply 00:00: [place] (BLOOD 00 Medical PRESSURE Branch CUFF) Misc Miscellaneo 2020-0 Yes [id number] Use as [facility] directed ity o f Supply 00:00: [place] (BLOOD 00 Medical PRESSURE Branch CUFF) Misc Miscellaneo 2020-0 Yes [id number] Use as [facility] directed ity o f Supply 00:00: [place] (BLOOD 00 Medical PRESSURE Branch CUFF) Misc Miscellaneo 2020-0 Yes [id number] Use as [facility] directed ity o f Supply 00:00: [place] (BLOOD 00 Medical PRESSURE Branch CUFF) Misc Miscellaneo 2020-0 Yes [id number] Use as [facility] directed ity o f Supply 00:00: [place] (BLOOD 00 Medical PRESSURE Branch CUFF) Misc Miscellaneo 2020-0 Yes [id number] Use as [facility] directed ity o f Supply 00:00: [place] (BLOOD 00 Medical PRESSURE Branch CUFF) Misc Miscellaneo 2020-0 Yes [id number] Use as [facility] directed ity o f Supply 00:00: [place] (BLOOD 00 Medical PRESSURE Branch CUFF) Misc Miscellaneo 2020-0 Yes [id number] Use as [facility] directed ity o f Supply 00:00: [place] (BLOOD 00 Medical PRESSURE Branch CUFF) Misc Miscellaneo 2020-0 Yes [id number] Use as [facility] directed ity o f Supply 00:00: [place] (BLOOD 00 Medical PRESSURE Branch CUFF) Misc Miscellaneo 2020-0 Yes [id number] Use as [facility] directed ity o f Supply 00:00: [place] (BLOOD 00 Medical PRESSURE Branch CUFF) Misc Miscellaneo 2020-0 Yes [id number] Use as [facility] directed ity o f Supply 00:00: [place] (BLOOD 00 Medical PRESSURE Branch CUFF) Misc Miscellaneo 2020-0 Yes [id number] Use as [facility] directed ity o f Supply 00:00: [place] (BLOOD 00 Medical PRESSURE Branch CUFF) Misc Miscellaneo 2020-0 Yes [id number] Use as [facility] directed ity o f Supply 00:00: [place] (BLOOD 00 Medical PRESSURE Branch CUFF) Misc Miscellaneo 2020-0 Yes [id number] Use as [facility] directed ity o f Supply 00:00: [place] (BLOOD 00 Medical PRESSURE Branch CUFF) Misc Miscellaneo 2020-0 Yes [id number] Use as [facility] directed ity o f Supply 00:00: [place] (BLOOD 00 Medical PRESSURE Branch CUFF) Misc Miscellaneo 2020-0 Yes [id number] Use as [facility] directed ity o f Supply 00:00: [place] (BLOOD 00 Medical PRESSURE Branch CUFF) Misc Miscellaneo 2020-0 Yes [id number] Use as [facility] directed ity o f Supply 00:00: [place] (BLOOD 00 Medical PRESSURE Branch CUFF) Misc Miscellaneo 2020-0 Yes [id number] Use as [facility] directed ity o f Supply 00:00: [place] (BLOOD 00 Medical PRESSURE Branch CUFF) Misc Miscellaneo 2020-0 Yes [id number] Use as [facility] directed ity o f Supply 00:00: [place] (BLOOD 00 Medical PRESSURE Branch CUFF) Misc Miscellaneo 2020-0 Yes [id number] Use as [facility] directed ity o f Supply 00:00: [place] (BLOOD 00 Medical PRESSURE Branch CUFF) Misc Miscellaneo 2020-0 2021- No [id number] Use as [place] [id number] directed ity of Supply 00:00: 00:00 [place] (BLOOD 00 :00 Medical PRESSURE Branch CUFF) [facility] [place] Miscellaneo 2020-0 2020- No [id number] Use as [facility] 11-30 directed ity of Supply 00:00: 00:00 [place] (BLOOD 00 :00 Medical PRESSURE Branch CUFF) [facility] [place] Miscellaneo 2020-0 2020- No [id number] Use as [facility] 11-30 directed ity of Supply 00:00: 00:00 [place] (BLOOD 00 :00 Medical PRESSURE Branch CUFF) [facility] [place] Miscellaneo 2020-0 2020- No [id number] Use as [facility] 11-30 directed ity of Supply 00:00: 00:00 [place] (BLOOD 00 :00 Medical PRESSURE Branch CUFF) [facility] [place] proMETHazin 2020-0 Yes [id number] 25mg Take 1 Univers e 25 mg 3-31 tablet by ity of tablet 00:00: mouth [place] 00 every 6 Medical (six) Branch hours as needed for Nausea and Vomiting (N/V). proMETHazin 2020-0 Yes [id number] 25mg Take 1 Univers e 25 mg 3-31 tablet by ity of tablet 00:00: mouth [place] 00 every 6 Medical (six) Branch hours as needed for Nausea and Vomiting (N/V). proMETHazin 2020-0 Yes [id number] 25mg Take 1 Univers e 25 mg 3-31 tablet by ity of tablet 00:00: mouth [place] 00 every 6 Medical (six) Branch hours as needed for Nausea and Vomiting (N/V). proMETHazin 2020-0 Yes [id number] 25mg Take 1 Univers e 25 mg 3-31 tablet by ity of tablet 00:00: mouth [place] 00 every 6 Medical (six) Branch hours as needed for Nausea and Vomiting (N/V). proMETHazin 2020-0 Yes [id number] 25mg Take 1 Univers e 25 mg 3-31 tablet by ity of tablet 00:00: mouth [place] 00 every 6 Medical (six) Branch hours as needed for Nausea and Vomiting (N/V). proMETHazin 2020-0 Yes [id number] 25mg Take 1 Univers e 25 mg 3-31 tablet by ity of tablet 00:00: mouth [place] 00 every 6 Medical (six) Branch hours as needed for Nausea and Vomiting (N/V). proMETHazin 2020-0 2020- No [id number] 25mg Take 1 Univers e 25 mg 3-31 06-23 tablet by ity of tablet 00:00: 00:00 mouth [place] 00 :00 every 6 Medical (six) Branch hours as needed for Nausea and Vomiting (N/V). proMETHazin 2019- No [id number] 25mg Take 1 Univers e 25 mg 3-31 06-23 tablet by ity of tablet 00:00: 00:00 mouth [place] 00 :00 every 6 Medical (six) Branch hours as needed for Nausea and Vomiting (N/V). proMETHazin 2019- No [id number] 25mg Take 1 Univers e 25 mg 3-31 06-23 tablet by ity of tablet 00:00: 00:00 mouth [place] 00 :00 every 6 Medical (six) Branch hours as needed for Nausea and Vomiting (N/V). proMETHazin 2019- No [id number] 25mg Take 1 Univers e 25 mg 3-31 06-23 tablet by ity of tablet 00:00: 00:00 mouth [place] 00 :00 every 6 Medical (six) Branch hours as needed for Nausea and Vomiting (N/V). LOESTRIN FE Yes [id number] 1{tbl} Take 1 Univers (LOESTRIN 5-16 tablet by ity o f FE 08/25) 1 00:00: mouth [place] mg-20 mcg 00 daily. Medical (21)/75 mg Branch (7) tablet LOESTRIN FE Yes [id number] 1{tbl} Take 1 Univers (LOESTRIN 5-16 tablet by ity o f FE 08/25) 1 00:00: mouth [place] mg-20 mcg 00 daily. Medical (21)/75 mg Branch (7) tablet LOESTRIN FE Yes [id number] 1{tbl} Take 1 Univers (LOESTRIN 5-16 tablet by ity o f FE 08/25) 1 00:00: mouth [place] mg-20 mcg 00 daily. Medical (21)/75 mg Branch (7) tablet LOESTRIN FE Yes [id number] 1{tbl} Take 1 Univers (LOESTRIN 5-16 tablet by ity o f FE 08/25) 1 00:00: mouth [place] mg-20 mcg 00 daily. Medical (21)/75 mg Branch (7) tablet LOESTRIN FE 2018- Yes [id number] 1{tbl} Take 1 Univers (LOESTRIN 5-16 tablet by ity o f FE 08/25) 1 00:00: mouth [place] mg-20 mcg 00 daily. Medical (21)/75 mg Branch (7) tablet LOESTRIN FE Yes [id number] 1{tbl} Take 1 Univers (LOESTRIN 5-16 tablet by [employer] o f FE 08/25) 1 00:00: mouth [place] mg-20 mcg 00 daily. Medical (21)/75 mg Branch (7) tablet LOESTRIN FE Yes [id number] 1{tbl} Take 1 Univers (LOESTRIN 5-16 tablet by [employer] o [employer] FE 08/25) 1 00:00: mouth [place] mg-20 mcg 00 daily. Medical (21)/75 mg Branch (7) tablet LOESTRIN FE Yes [id number] 1{tbl} Take 1 Univers (LOESTRIN 5-16 tablet by [employer] FE 08/25) 1 00:00: mouth [place] mg-20 mcg 00 daily. Medical (21)/75 mg Branch (7) tablet LOESTRIN FE Yes [id number] 1{tbl} Take 1 Univers (LOESTRIN 5-16 tablet by [facility]ogram FE 08/25) 1 00:00: mouth [place] mg-20 mcg 00 daily. Medical (21)/75 mg Branch (7) tablet LOESTRIN FE Yes [id number] 1{tbl} Take 1 Univers (LOESTRIN 5-16 tablet by fitogram FE 08/25) 1 00:00: mouth [place] mg-20 mcg 00 daily. Medical (21)/75 mg Branch (7) tablet LOESTRIN FE Yes [id number] 1{tbl} Take 1 Univers (LOESTRIN 5-16 tablet by [employer] [facility] [employer] FE 08/25) 1 00:00: mouth [place] mg-20 mcg 00 daily. Medical (21)/75 mg Branch (7) tablet LOESTRIN FE Yes [id number] 1{tbl} Take 1 Univers (LOESTRIN 5-16 tablet by [employer] o [employer] FE 08/25) 1 00:00: mouth [place] mg-20 mcg 00 daily. Medical (21)/75 mg Branch (7) tablet LOESTRIN FE Yes [id number] 1{tbl} Take 1 Univers (LOESTRIN 5-16 tablet by [facility]ogram FE 08/25) 1 00:00: mouth [place] mg-20 mcg 00 daily. Medical (21)/75 mg Branch (7) tablet LOESTRIN FE Yes [id number] 1{tbl} Take 1 Univers (LOESTRIN 5-16 tablet by fitogram 08/25) 1 00:00: mouth [place] mg-20 mcg 00 daily. Medical (21)/75 mg Branch (7) tablet LOESTRIN FE Yes [id number] 1{tbl} Take 1 Univers (LOESTRIN 5-16 tablet by fitogram 08/25) 1 00:00: mouth [place] mg-20 mcg 00 daily. Medical (21)/75 mg Branch (7) tablet LOESTRIN FE Yes [id number] 1{tbl} Take 1 Univers (LOESTRIN 5-16 tablet by fitogram 08/25) 1 00:00: mouth [place] mg-20 mcg 00 daily. Medical (21)/75 mg Branch (7) tablet LOESTRIN FE Yes [id number] 1{tbl} Take 1 Univers (LOESTRIN 5-16 tablet by fitogram 08/25) 1 00:00: mouth [place] mg-20 mcg 00 daily. Medical (21)/75 mg Branch (7) tablet LOESTRIN FE Yes [id number] 1{tbl} Take 1 Univers (LOESTRIN 5-16 tablet by fitogram 08/25) 1 00:00: mouth [place] mg-20 mcg 00 daily. Medical (21)/75 mg Branch (7) tablet LOESTRIN FE Yes [id number] 1{tbl} Take 1 Univers (LOESTRIN 5-16 tablet by fitogram FE 08/25) 1 00:00: mouth [place] mg-20 mcg 00 daily. Medical (21)/75 mg Branch (7) tablet LOESTRIN FE Yes [id number] 1{tbl} Take 1 Univers (LOESTRIN 5-16 tablet by [employer] 08/25) 1 00:00: mouth [place] mg-20 mcg 00 daily. Medical (21)/75 mg Branch (7) tablet LOESTRIN FE Yes [id number] 1{tbl} Take 1 Univers (LOESTRIN 5-16 tablet by [employer] 08/25) 1 00:00: mouth [place] mg-20 mcg 00 daily. Medical (21)/75 mg Branch (7) tablet LOESTRIN FE Yes [id number] 1{tbl} Take 1 Univers (LOESTRIN 5-16 tablet by [employer] 08/25) 1 00:00: mouth [place] mg-20 mcg 00 daily. Medical (21)/75 mg Branch (7) tablet LOESTRIN FE Yes [id number] 1{tbl} Take 1 Univers (LOESTRIN 5-16 tablet by [facility]ogram 08/25) 1 00:00: mouth [place] mg-20 mcg 00 daily. Medical (21)/75 mg Branch (7) tablet LOESTRIN FE Yes [id number] 1{tbl} Take 1 Univers (LOESTRIN 5-16 tablet by fitogram 08/25) 1 00:00: mouth [place] mg-20 mcg 00 daily. Medical (21)/75 mg Branch (7) tablet LOESTRIN FE 2020- No [id number] 1{tbl} Take 1 Univers (LOESTRIN 5-16 11-02 tablet by [facility] 08/25) 1 00:00: 00:00 mouth [place] mg-20 mcg 00 :00 daily. Medical (21)/75 mg Branch (7) tablet Immunizations Ordered Filled Immunization Date Status Comments [facility] e Immunization Name Name HPV9 2021-02-22 Completed University of 00:00:00 [facility] [place] [facility] HPV9 2021-02-22 Completed University of 00:00:00 [facility] [place] [facility] HPV9 2021-02-22 Completed University of 00:00:00 [facility] [place] [facility] HPV9 2021-02-22 Completed University of 00:00:00 [facility] [place] [facility] HPV9 2021-02-22 Completed University of 00:00:00 [facility] [place] [facility] HPV9 2021-02-22 Completed University of 00:00:00 [facility] [place] [facility] Influenza Virus 2020-05-18 Completed Universit y of Vaccine [place] .5 mL 00:00:00 [place] [facility] IM 6+ MO Branch Influenza Virus 2020-05-18 Completed Universit y of Vaccine [place] .5 mL 00:00:00 [place] [facility] IM 6+ MO Branch Influenza Virus 2020-05-18 Completed Universit y of Vaccine [place] .5 mL 00:00:00 [place] [facility] IM 6+ MO Branch Influenza Virus 2020-05-18 Completed Universit y of Vaccine [place] .5 mL 00:00:00 [place] [facility] IM 6+ MO Branch Influenza Virus 2020-05-18 Completed Universit y of Vaccine [place] .5 mL 00:00:00 [place] [facility] IM 6+ MO Branch Influenza Virus 2020-05-18 Completed Universit y of Vaccine [place] .5 mL 00:00:00 [place] [facility] IM 6+ MO Branch Influenza Virus 2020-05-18 Completed Universit y of Vaccine [place] .5 mL 00:00:00 [place] [facility] IM 6+ MO Branch Influenza Virus 2020-05-18 Completed Universit y of Vaccine [place] .5 mL 00:00:00 [place] [facility] IM 6+ MO Branch Influenza Virus 2020-05-18 Completed Universit y of Vaccine [place] .5 mL 00:00:00 [place] [facility] IM 6+ MO Branch Influenza Virus 2020-05-18 Completed Universit y of Vaccine [place] .5 mL 00:00:00 [place] [facility] IM 6+ MO Branch Influenza Virus 2020-05-18 Completed Universit y of Vaccine [place] .5 mL 00:00:00 [place] [facility] IM 6+ MO Branch Influenza Virus 2020-05-18 Completed Universit y of Vaccine [place] .5 mL 00:00:00 [place] [facility] IM 6+ MO Branch Influenza Virus 2020-05-18 Completed Universit y of Vaccine [place] .5 mL 00:00:00 [place] [facility] IM 6+ MO Branch TDAP 2020-03-23 Completed University of 00:00:00 [place] [facility] TDAP 2020-03-23 Completed University of 00:00:00 [place] [facility] [place] TDAP 2020-03-23 Completed University of 00:00:00 [place] [facility] TDAP 2020-03-23 Completed University of 00:00:00 [place] [facility] [place] TDAP 2020-03-23 Completed University of 00:00:00 [place] [facility] [place] TDAP 2020-03-23 Completed University of 00:00:00 [place] [facility] [place] TDAP 2020-03-23 Completed University of 00:00:00 [facility] [place] [facility] TDAP 2020-03-23 Completed University of 00:00:00 [place] [facility] TDAP 2020-03-23 Completed University of 00:00:00 [place] [facility] TDAP 2020-03-23 Completed University of 00:00:00 [place] [facility] TDAP 2020-03-23 Completed University of 00:00:00 [place] [facility] TDAP 2020-03-23 Completed University of 00:00:00 [place] [facility] TDAP 2020-03-23 Completed University of 00:00:00 [place] [facility] TDAP 2020-03-23 Completed University of 00:00:00 [place] [facility] TDAP 2020-03-23 Completed University of 00:00:00 [place] [facility] TDAP 2020-03-23 Completed University of 00:00:00 [place] [facility] TDAP 2020-03-23 Completed University of 00:00:00 [place] [facility] TDAP 2020-03-23 Completed University of 00:00:00 [facility] Branch TDAP 2020-03-23 Completed University of 00:00:00 [facility] Branch TDAP 2020-03-23 Completed University of 00:00:00 [facility] Branch TDAP 2020-03-23 Completed University of 00:00:00 [facility] Branch TDAP 2012-08-06 Completed University of 00:00:00 [facility] Branch TDAP 2012-08-06 Completed University of 00:00:00 [facility] Branch TDAP 2012-08-06 Completed University of 00:00:00 [facility] Branch TDAP 2012-08-06 Completed University of 00:00:00 [facility] Branch TDAP 2012-08-06 Completed University of 00:00:00 [facility] Branch TDAP 2012-08-06 Completed University of 00:00:00 [place] [facility] TDAP 2012-08-06 Completed University of 00:00:00 [place] [facility] TDAP 2012-08-06 Completed University of 00:00:00 [place] [facility] TDAP 2012-08-06 Completed University of 00:00:00 [place] [facility] TDAP 2012-08-06 Completed University of 00:00:00 [place] [facility] TDAP 2012-08-06 Completed University of 00:00:00 [place] [facility] TDAP 2012-08-06 Completed University of 00:00:00 [facility] Branch TDAP 2012-08-06 Completed University of 00:00:00 [place] [facility] TDAP 2012-08-06 Completed University of 00:00:00 [place] [facility] TDAP 2012-08-06 Completed University of 00:00:00 [place] [facility] TDAP 2012-08-06 Completed University of 00:00:00 [place] [facility] TDAP 2012-08-06 Completed University of 00:00:00 [place] [facility] TDAP 2012-08-06 Completed University of 00:00:00 [place] [facility] TDAP 2012-08-06 Completed University of 00:00:00 [place] [facility] Tdap 2012-08-06 Completed University of 00:00:00 [place] [facility] TDAP 2012-08-06 Completed University of 00:00:00 [place] [facility] Tdap 2012-08-06 Completed University of 00:00:00 [place] [facility] TDAP 2012-08-06 Completed University of 00:00:00 [place] [facility] TDAP 2012-08-06 Completed University of 00:00:00 [place] [facility] TDAP 2012-08-06 Completed University of 00:00:00 [facility] Branch TDAP 2012-08-06 Completed University of 00:00:00 [facility] Branch TDAP 2012-08-06 Completed University of 00:00:00 [facility] Branch TDAP 2012-08-06 Completed University of 00:00:00 [facility] Branch TDAP 2012-08-06 Completed University of 00:00:00 [place] [facility] Tdap 2012-08-06 Completed University of 00:00:00 [facility] Branch TDAP 2012-08-06 Completed University of 00:00:00 [facility] Branch TDAP 2012-08-06 Completed University of 00:00:00 [facility] Branch Tdap 2012-08-06 Completed University of 00:00:00 [facility] Branch Tdap 2012-08-06 Completed University of 00:00:00 [facility] Branch Tdap 2012-08-06 Completed University of 00:00:00 [facility] [place] [facility] Vital Signs Vital Name Observation Time Observation Value Comments Source Systolic blood 2021-03-08 18:48:00 119 mm[Hg] Univer sity of pressure [facility] [place] [facility] Diastolic blood 2021-03-08 18:48:00 81 mm[Hg] Unive rsity of pressure [facility] [place] [facility] Heart rate 2021-03-08 18:48:00 78 /min Universi ty of [facility] [place] [facility] Body temperature 2021-03-08 18:48:00 36.83 Sana Univ ersity of [facility] [place] [facility] Respiratory rate 2021-03-08 18:48:00 16 /min Univ ersity of [place] [facility] Body height 2021-03-08 18:48:00 160 cm [facility] [place] [facility] Body weight 2021-03-08 18:48:00 73.392 kg [facility] [place] [facility] BMI 2021-03-08 18:48:00 28.66 kg/m2 [facility] [place] [facility] Systolic blood 2021-02-22 18:29:00 130 mm[Hg] Univer sity of pressure [place] [facility] Diastolic blood 2021-02-22 18:29:00 81 mm[Hg] [facility] Heart rate 2021-02-22 18:29:00 86 /min [facility] Body temperature 2021-02-22 18:29:00 37.06 Sana [facility] Respiratory rate 2021-02-22 18:29:00 16 /min [facility] Body height 2021-02-22 18:29:00 160 cm [facility] Body weight 2021-02-22 18:29:00 76.386 kg [facility] BMI 2021-02-22 18:29:00 29.83 kg/m2 [facility] Systolic blood 2020-06-28 14:52:00 109 mm[Hg] [facility] Diastolic blood 2020-06-28 14:52:00 68 mm[Hg] [facility] Heart rate 2020-06-28 14:52:00 84 /min [facility] Body temperature 2020-06-28 14:52:00 36.72 Sana [facility] Respiratory rate 2020-06-28 14:52:00 16 /min [facility] Body height 2020-06-28 14:52:00 160 cm [facility] Body weight 2020-06-28 14:52:00 68.55 kg [facility] BMI 2020-06-28 14:52:00 26.77 kg/m2 [facility] Systolic blood 2020-06-15 22:11:00 116 mm[Hg] [facility] Diastolic blood 2020-06-15 22:11:00 68 mm[Hg] Unive rsity of pressure [facility] Heart rate 2020-06-15 22:11:00 99 /min [facility] Body temperature 2020-06-15 22:11:00 36.83 Sana [facility] Respiratory rate 2020-06-15 22:11:00 16 /min Univ ers[facility] of [facility] Body height 2020-06-15 22:11:00 160 cm [facility] Body weight 2020-06-15 22:11:00 68.629 kg [facility] BMI 2020-06-15 22:11:00 26.80 kg/m2 [facility] Systolic blood 2020-06-07 13:38:00 109 mm[Hg] Univer sity of pressure [facility] Diastolic blood 2020-06-07 13:38:00 69 mm[Hg] Unive rsity of pressure [facility] Heart rate 2020-06-07 13:38:00 82 /min [facility] Body temperature 2020-06-07 13:38:00 36.61 Sana [facility] Respiratory rate 2020-06-07 13:38:00 18 /min Univ [facility] Oxygen saturation in 2020-06-07 13:38:00 97 /min University of Arterial blood by [facility] Pulse oximetry Branch Body height 2020 12:46:00 160 cm [facility] Body weight 2020 12:46:00 73.528 kg [facility] BMI 2020 12:46:00 28.71 kg/m2 [facility] Systolic blood 2020-06-01 18:32:00 125 mm[Hg] Univer sity of [facility] Diastolic blood 2020-06-01 18:32:00 79 mm[Hg] Unive rsity of pressure [facility] Heart rate 2020-06-01 18:32:00 101 /min [facility] Body temperature 2020-06-01 18:32:00 36.44 Sana [facility] Respiratory rate 2020-06-01 18:32:00 16 /min Univ [facility] Body height 2020-06-01 18:32:00 160 cm [facility] Body weight 2020-06-01 18:32:00 74.05 kg [facility] BMI 2020-06-01 18:32:00 28.92 kg/m2 [facility] Systolic blood 2020-05-18 18:18:00 105 mm[Hg] [facility] Diastolic blood 2020-05-18 18:18:00 72 mm[Hg] [facility] Heart rate 2020-05-18 18:18:00 102 /min [facility] Body temperature 2020-05-18 18:18:00 36.44 Sana [facility] Respiratory rate 2020-05-18 18:18:00 16 /min [facility] Body height 2020-05-18 18:18:00 160 cm [facility] Body weight 2020-05-18 18:18:00 72.746 kg [facility] BMI 2020-05-18 18:18:00 28.41 kg/m2 [facility] Systolic blood 2020-05-04 16:19:00 108 mm[Hg] [facility] Diastolic blood 2020-05-04 16:19:00 65 mm[Hg] [facility] Heart rate 2020-05-04 16:19:00 96 /min [facility] Body temperature 2020-05-04 16:19:00 36.39 Sana [facility] Respiratory rate 2020-05-04 16:19:00 16 /min [facility] Body height 2020-05-04 16:19:00 160 cm [facility] Body weight 2020-05-04 16:19:00 71.215 kg [facility] BMI 2020-05-04 16:19:00 27.81 kg/m2 [facility] Systolic blood 2020-04-20 20:15:00 111 mm[Hg] [facility] Diastolic blood 2020-04-20 20:15:00 75 mm[Hg] [facility] Heart rate 2020-04-20 20:15:00 100 /min [facility] Body temperature 2020-04-20 20:15:00 36.33 Sana [facility] Respiratory rate 2020-04-20 20:15:00 16 /min [facility] Body height 2020-04-20 20:15:00 154.9 cm [facility] Body weight 2020-04-20 20:15:00 68.21 kg [facility] BMI 2020-04-20 20:15:00 28.41 kg/m2 [facility] Systolic blood 2020-04-06 19:12:00 110 mm[Hg] [facility] Diastolic blood 2020-04-06 19:12:00 67 mm[Hg] [facility] Heart rate 2020-04-06 19:12:00 103 /min [facility] Body temperature 2020-04-06 19:12:00 36.28 Sana [facility] Respiratory rate 2020-04-06 19:12:00 16 /min [facility] Body height 2020-04-06 19:12:00 154.9 cm [facility] Body weight 2020-04-06 19:12:00 67.132 kg [facility] BMI 2020-04-06 19:12:00 27.96 kg/m2 [facility] Systolic blood 2020-03-23 15:02:00 108 mm[Hg] [facility] Diastolic blood 2020-03-23 15:02:00 66 mm[Hg] [facility] Heart rate 2020-03-23 15:02:00 94 /min [facility] Body temperature 2020-03-23 15:02:00 36.56 Sana [facility] Respiratory rate 2020-03-23 15:02:00 16 /min [facility] Body height 2020-03-23 15:02:00 154.9 cm [facility] Body weight 2020-03-23 15:02:00 64.638 kg [facility] BMI 2020-03-23 15:02:00 26.93 kg/m2 [facility] Systolic blood 2020-02-24 19:02:00 109 mm[Hg] [facility] Diastolic blood 2020-02-24 19:02:00 71 mm[Hg] [facility] Heart rate 2020-02-24 19:02:00 96 /min [facility] Body temperature 2020-02-24 19:02:00 36.94 Sana [facility] Respiratory rate 2020-02-24 19:02:00 16 /min [facility] Body height 2020-02-24 19:02:00 154.9 cm [facility] Body weight 2020-02-24 19:02:00 65.8 kg [facility] BMI 2020-02-24 19:02:00 27.41 kg/m2 [facility] Systolic blood 2020-01-27 15:52:00 107 mm[Hg] [facility] Diastolic blood 2020-01-27 15:52:00 66 mm[Hg] [facility] Heart rate 2020-01-27 15:52:00 93 /min [facility] Body temperature 2020-01-27 15:52:00 36.39 Sana [facility] Respiratory rate 2020-01-27 15:52:00 16 /min [facility] Body height 2020-01-27 15:52:00 154.9 cm [facility] Body weight 2020-01-27 15:52:00 64.864 kg [facility] BMI 2020-01-27 15:52:00 27.02 kg/m2 [facility] Systolic blood 2019-11-04 20:03:00 115 mm[Hg] [facility] Diastolic blood 2019-11-04 20:03:00 71 mm[Hg] [facility] Heart rate 2019-11-04 20:03:00 89 /min [facility] Body temperature 2019-11-04 20:03:00 36.89 Sana [facility] Respiratory rate 2019-11-04 20:03:00 16 /min [facility] Body height 2019-11-04 20:03:00 154.9 cm [facility] Body weight 2019-11-04 20:03:00 58.174 kg [facility] BMI 2019-11-04 20:03:00 24.23 kg/m2 [facility] Procedures Procedure Date / Time Performed Performing Clinician Sourc e POCT TEST 2021-03-08 18:54:00 [facility] GARDASIL 9 (HPV 9V) 2021-02-22 18:39:42 [facility] VACCINE [facility] POCT TEST 2021-02-22 18:33:00 [facility] ASSIGNMENT OF BENEFITS 2021-02-22 17:57:43 Doctor Unassigned, No [facility] Name [facility] CBC WITH DIFF 2020-06-07 09:53:00 [facility] o f [facility] VENOUS CORD GAS 2020-06-06 05:42:00 Alok Park [facility] HEPATITIS B SURFACE 2020 15:38:00 [facility] GALV ONLY - SYPHILIS 2020 15:38[facility]00 [facility] IGG/IGM [facility] HB ABO GROUPING 2020 15:34:00 Alok Park [facility] RHO (D) IMMUNE 2020 15:34:00 [facility] [place] GLOBULIN [facility] COVID-19 (ID NOW RAPID 2020 12:55:00 Neva Yadav [facility] TESTING) Medical Branch POCT URINALYSIS 2020-06-01 18:42:00 Charis Lopez [facility] POCT URINALYSIS 2020-05-18 18:50:00 Charis Lopez [facility] FLU VACC ([id number]), 2020-05-18 18:26:19 Charis Lopez [facility] 6+ MONTHS, IM, QUAD Medical Bran ch GC & CHLAMYDIA 2020-05-18 18:19:00 Charis Lopez [facility] AMPLIFIED [facility] CBC WITH DIFF 2020-05-18 18:15:00 Charis Lopez [facility] SARS-COV-2 IGG 2020-05-18 18:15:00 Charis Lopez [facility] POCT URINALYSIS 2020-05-04 00:00:00 Charis Lopez [facility] POCT URINALYSIS 2020-04-06 19:13:00 Charis Lopez [facility] TDAP VACCINE, >11 YRS, 2020-03-23 15:15:43 Charis Lopez [facility] POCT URINALYSIS 2020-03-23 15:04:00 Charis Lopez [facility] POCT URINALYSIS 2020-02-24 19:10:00 Charis Lopez [facility] POCT URINALYSIS 2020-01-27 15:54:00 Charis Lopez [facility] POCT TEST 2019-11-04 20:09:00 Charis Lopez Uni [facility] POCT URINALYSIS W/O 2019-11-04 20:09:00 Charis Lopez [facility] SPECIFIC [facility] ASSIGNMENT OF BENEFITS 2019-11-04 19:40:17 Doctor Unassigned, No [facility] Encounters Start End Encounter Admission Attending Care Care Encounter Source Date/Time Date/Time Type Type Clinicians Facility Department ID 2021-06-04 Outpatient [facility] [id number] Univers 02:14:15 [facility] 2021-06-07 2021-06-07 Outpatient R LORAINE [facility] [id number] Univers 13:30:00 13:30:00 WILLI [facility] 2021-06-07 2021-06-07 Outpatient R [facility] [id number] Univers 13:30:00 13:30:00 [id number] ity [facility] 2021-05-31 2021-05-31 Outpatient R [facility] [id number] Univers 15:00:00 15:00:00 [id number] it[facility] 2021-05-31 2021-05-31 Outpatient R [facility] [id number] Univers 15:00:00 15:00:00 ity [facility] 2021-03-28 2021-03-28 Outpatient R [facility] [id number] Univers 13:00:00 13:00:00 [id number] ity [facility] 2021-03-28 2021-03-28 Outpatient R [facility] [id number] Univers 13:00:00 13:00:00 ity [facility] 2021-03-08 2021-03-08 Office [facility] [id number] Univers 13:05:41 14:40:33 Visit Ronaldo Hawley MONOTYPE OPERATOR [id number] ity [facility] [id number] Eleno as MATERNAL [id number] Med ical & CHILD [address] [place] [address] 2021-03-08 2021-03-08 [facility] [id number] Univers 13:15:00 13:15:00 RONALDO [id number] ity o [facility] 2021-03-08 2021-03-08 Outpatient R [facility] [id number] Univers 13:15:00 13:15:00 CHANDRIKAPEYTONA ity o [facility] 2021-02-22 2021-02-22 Office [facility] [id number] Univers 13:01:00 14:10:48 Visit Ronaldo Hawley MONOTYPE OPERATOR [id number] ity of [facility] [id number] Eleno as MATERNAL [id number] [facility] CHILD [address] [place] [address] 2021-02-22 2021-02-22 Outpatient [facility] [id number] Univers 13:00:00 13:00:00 RONALDO [id number] ity o [facility] 2021-02-22 2021-02-22 Outpatient R JAVIER [facility] [id number] Univers 13:00:00 13:00:00 RONALDO benedict o benjamin [facility] 2021-02-22 2021-02-22 Orders Doctor RONNIE [id number] Univers 00:00:00 00:00:00 Only Unassigned, UGO [id number] ity of [facility] [id number] El[place] as [id number] [address] 2020-09-28 2020-09-28 Outpatient R JAVIER [facility] [id number] Univers 08:45:00 08:45:00 RONALDO [id number] marichuy o [facility] 2020-07-28 2020-07-28 Laboratory Lab, Adc Fam Pob I [facility] 1.2. [id number] Univers 17:44:16 18:04:16 Only Jignesh Acosta [facility] [id number] ity [facility] [id number] Eleno as Professio [id number] [address] Office [address] [facility] 2020-07-28 2020-07-28 Outpatient R [facility] [id number] Univers 17:40:00 17:40:00 [id number] ity of [facility] 2020-07-28 2020-07-28 Outpatient R PASQUALE [facility] [id number] Univers 17:40:00 17:40:00 JIGNESH marieirvin tijerina [facility] 2020-07-19 2020-07-19 Outpatient R AKINSIPE, [facility] [id number] Univers 09:15:00 09:15:00 CHARIS [id number] ity o [facility] 2020-07-19 2020-07-19 Outpatient R AKINSIPE, [facility] [id number] Univers 09:15:00 09:15:00 CHARIS tijerina [facility] 2020-06-28 2020-06-28 Routine Akinsipe, [facility] [id number] Univers 08:45:09 09:22:52 Charis C MONOTYPE OPERATOR [id number] ity of Visit REGIONAL [id number] [place] as MATERNAL [id number] [facility] ical & CHILD [address] [place] [address] 2020-06-28 2020-06-28 Outpatient R PATRICKMERLE, [facility] [id number] Univers 09:00:00 09:00:00 CHARIS ity o f [facility] 2020-06-15 2020-06-15 Nurse Visit, [facility] Nurse [facility] 1.2 .[id number] Univers 16:02:26 16:27:54 Visit Charis Lopez Meka MONOTYPE OPERATOR [id number]. 10 ity of REGIONAL [id number] [place] as MATERNAL [id number] [facility] & CHILD [address] [place] [address] 2020-06-15 2020-06-15 Outpatient R [facility] [id number] Univers 16:00:00 16:00:00 [id number] ity of [facility] 2020-06-15 2020-06-15 Outpatient R AKINMERLE, [facility] [id number] Univers 16:00:00 16:00:00 CHARIS mariey o f [facility] 2020 2020-06-07 Hospital [facility] [id number] Univers 06:50:00 12:10:00 Encounter Mi ARIZMENDI [id number] ity of [facility] [id number] [place] as [phone] [address] 2020-06-01 2020-06-01 [facility] [id number] Univers 13:04:55 13:50:51 Charis C MONOTYPE OPERATOR [id number] ity of Visit [facility] [id number] [place] as MATERNAL [id number] [facility] CH[facility] [address] [place] [address] 2020-06-01 2020-06-01 Outpatient R AKINMERLE, [facility] [id number] Univers 13:00:00 13:00:00 CHARIS [id number] ity o f [facility] 2020-06-01 2020-06-01 Outpatient R AKINSIPE, [facility] [id number] Univers 13:00:00 13:00:00 CHARIS ity o f [facility] 2020-05-25 2020-05-25 Outpatient R AKINSIPE, [facility] [id number] Univers 15:15:00 15:15:00 CHARIS ity o f [facility] 2020-05-25 2020-05-25 Outpatient R AKINSIPE, [facility] [id number] Univers 15:15:00 15:15:00 CHARIS ity o [facility] 2020-05-18 2020-05-18 Routine Akinsipe, [facility] [id number] Univers 12:52:03 13:33:06 Charis C MONOTYPE OPERATOR [id number] ity of Visit REGIONAL [id number] [place] as MATERNAL [id number] Med ical & CHILD [address] [place] [address] 2020-05-18 2020-05-18 Outpatient R AKINSIPE, [facility] [id number] Univers 12:45:00 12:45:00 CHARIS [id number] ity o [facility] 2020-05-18 2020-05-18 Outpatient R AKINSIPE, [facility] [id number] Univers 12:45:00 12:45:00 CHARIS ity o [facility] 2020-05-04 2020-05-04 Routine Akinsipe, [facility] [id number] Univers 11:00:33 11:33:08 Charis C MONOTYPE OPERATOR [id number] ity of Visit [facility]AL [id number] [place] as MATERNAL [id number] [facility] CHILD [address] [place] [address] 2020-05-04 2020-05-04 Outpatient R AKINSIPE, [facility] [id number] Univers 11:00:00 11:00:00 CHARIS [id number] ity o [facility] 2020-05-04 2020-05-04 Outpatient R AKINSIPE, [facility] [id number] Univers 11:00:00 11:00:00 CHARIS ity o [facility] 2020-04-26 2020-04-26 Telephone Akinsipe, [facility] [id number] Univers 00:00:00 00:00:00 Charis C MONOTYPE OPERATOR [id number] ity of [facility] [id number] [place] as MATERNAL [id number] [facility] CHILD [address] [place] [address] 2020-04-20 2020-04-20 Routine Akinsipe, [facility] [id number] Univers 14:56:53 15:11:53 Charis C MONOTYPE OPERATOR [id number] ity of Visit REGIONAL [id number] [place] as MATERNAL [id number] [facility] & [address] 2020-04-20 2020-04-20 Outpatient R AKINSIPE, [facility] [id number] Univers 15:00:00 15:00:00 CHARIS [id number] ity o [facility] 2020-04-20 2020-04-20 Outpatient R AKINSIPE, [facility] [id number] Univers 15:00:00 15:00:00 CHARIS ity o [facility] 2020-04-06 2020-04-06 Routine Akinsipe, [facility] [id number] Univers 14:01:19 14:16:19 Charis C MONOTYPE OPERATOR [id number] ity of Visit REGIONAL [id number] [place] as MATERNAL [id number] [facility] & CHILD [address] [place] [address] 2020-04-06 2020-04-06 Outpatient R AKINSIPE, [facility] [id number] Univers 14:00:00 14:00:00 CHARIS ity o [facility] 2020-04-06 2020-04-06 Outpatient R AKINSIPE, [facility] [id number] Univers 14:00:00 14:00:00 CHARIS ity o [facility] 2020-03-23 2020-03-23 Routine Akinsipe, [facility] [id number] Univers 09:53:34 10:34:48 Charis C MONOTYPE OPERATOR [id number] ity of Visit REGIONAL [id number] [place] as MATERNAL [id number] [facility] CHILD [address] [place] [address] 2020-03-23 2020-03-23 Outpatient R AKINSIPE, [facility] [id number] Univers 10:15:00 10:15:00 CHARIS [id number] ity o f [facility] 2020-03-23 2020-03-23 Outpatient R AKINSIPE, [facility] [id number] Univers 10:15:00 10:15:00 CHARIS ity o [facility] 2020-02-24 2020-02-24 Routine Akinsipe, [facility] [id number] Univers 13:50:08 15:16:23 Charis C MONOTYPE OPERATOR [id number] ity of Visit REGIONAL [id number] [place] as MATERNAL [id number] [facility] & [address] 2020-02-24 2020-02-24 Outpatient R AKINSIPE, [facility] [id number] Univers 13:45:00 13:45:00 CHARIS [id number] ity o [facility] 2020-02-24 2020-02-24 Outpatient R AKINSIPE, [facility] [id number] Univers 13:45:00 13:45:00 CHARIS ity o f [facility] 2020-01-27 2020-01-27 Routine Akinsipe, [facility] [id number] Univers 10:46:43 11:27:40 Charis C MONOTYPE OPERATOR [id number] ity of Visit REGIONAL [id number] [place] as MATERNAL [id number] [facility] & CHILD [address] [place] [address] 2020-01-27 2020-01-27 Outpatient R AKINSIPE, [facility] [id number] Univers 10:45:00 10:45:00 CHARIS [id number] ity o f [facility] 2020-01-27 2020-01-27 Outpatient R AKINSIPE, [facility] [id number] Univers 10:45:00 10:45:00 CHARIS ity o f [facility] 2020-01-26 2020-01-26 Cuff [employer] [place] Ultrasound, Ang-Mfm [facility] 1.2 .840.114 [id number] Univers 10:56:27 11:56:27 Visit Tim Cerna MONOTYPE OPERATOR [id number] ity of [facility] [id number] [place] as MATERNAL [id number] [facility] ical & CHILD [address] [facility] 2020-01-26 2020-01-26 Outpatient R [facility] [id number] Univers 11:00:00 11:00:00 [id number] ity [facility] 2020-01-26 2020-01-26 Outpatient P [facility] [id number] Univers 11:00:00 [facility] 2020-01-26 2020-01-26 Abstract Akinsipe, [facility] [id number] Univers 00:00:00 00:00:00 Charis Ackerman MONOTYPE OPERATOR [id number] ity of [facility] [id number] [place] as MATERNAL [id number] [facility] ical & CHILD [address] [facility] 2020-01-02 2020-01-02 Outpatient R AKINSIPE, [facility] [id number] Univers 15:30:00 15:30:00 CHARIS [id number] cynthiay o f [facility] 2020-01-02 2020-01-02 Outpatient R AKINSIPE, [facility] [id number] Univers 15:30:00 15:30:00 CHARIS cynthiay o f [facility] 2020-01-01 2020-01-01 Outpatient R AKINSIPE, [facility] [id number] Univers 12:45:00 12:45:00 CHARIS [id number] cynthiay o f [facility] 2020-01-01 2020-01-01 Outpatient R AKINSIPE, [facility] [id number] Univers 12:45:00 12:45:00 CHARIS mariey o f [facility] 2019-12-02 2019-12-02 Outpatient AKINSIPE, [facility] [id number] Univers 14:00:00 14:00:00 CHARIS [id number] cynthiay o benjamin [facility] 2019-12-02 2019-12-02 Outpatient R PATRICKSIPE, [facility] [facility] [id number] Univers 14:00:00 14:00:00 CHARIS cynthiay o bnejamin [facility] 2019-12-01 2019-12-01 Outpatient R AKINSIPE, [facility] [id number] Univers 15:00:00 15:00:00 CHARIS [id number] ity o [facility] 2019-12-01 2019-12-01 Outpatient R AKINSIPE, [facility] [id number] Univers 15:00:00 15:00:00 CHARIS benedict o [facility] 2019-12-01 2019-12-01 [facility] [id number] Univers 12:50:22 13:05:22 ne Visit Charis C MONOTYPE OPERATOR [id number] ity of REGIONAL 4.2.7.2.686 [place] as MATERNAL [phone] [facility] & CHILD [address] [place] [address] 2019-11-07 2019-11-07 Telephone [facility] [id number] Univers 00:00:00 00:00:00 Charis C MONOTYPE OPERATOR [id number] ity of REGIONAL 4.2.7.2.686 [place] as MATERNAL [phone] [facility] & CHILD [address] [place] [address] 2019-11-04 2019-11-04 Initial [facility] [id number] Univers 14:52:35 15:54:48 Charis C MONOTYPE OPERATOR 350.1.13.10 ity of Visit REGIONAL 4.2.7.2.686 [place] as MATERNAL [phone] [facility] & CHILD [address] [place] [address] 2019-11-04 2019-11-04 Outpatient R AKINSIPE, [facility] [id number] Univers 15:45:00 15:45:00 CHARIS [id number] cynthiairvin o benjamin [facility] 2019-11-04 2019-11-04 Outpatient R AKINSIPE, [facility] [id number] Univers 15:45:00 15:45:00 CHARIS mariey o f [facility] 2019-11-04 2019-11-04 Orders Doctor RONNIE [id number] Univers 00:00:00 00:00:00 Only Unassigned, UGO 350.1.13.10 ity of [place] [facility] 4.2.7.2.686 [place] as [phone] [address] 2019-11-03 2019-11-03 [facility] 1.2.840.114 [id number] Univers 00:00:00 00:00:00 Charis Ackerman MONOTYPE OPERATOR 350.1.13.10 ity of [facility] 4.2.7.2.686 [place] as MATERNAL [phone] Med ical & CHILD [address] [place] [address] Results Test Description Test Time Test Comments Results Result Comments Source POCT TEST 2021-03-08 18:55:00 Test Item Value Reference Range Interpretation Comme nts POCT PREG (test code = 1605) Negative On board controls acceptable with C Line (test code = 3574) Yes POCT PREG LOT # (test code = 3575) POCT PREG TEST DATE (test code = 3576) Lab Interpretation (test code = 28944-5) [id number] 18:55:00 Test Item Value Reference Range Interpretation Comments POCT PREG (test code = 1605) Negative On board controls acceptable with C Yes Line (test code = 3574) POCT PREG LOT # (test code = 3575) POCT PREG TEST DATE (test code = 3576) Lab Interpretation (test code = Normal 87444-9) [facility] [id number] 18:36:00 Test Item Value Reference Range Interpretation Comments POCT PREG (test code = 1605) Negative On board controls acceptable with C Yes Line (test code = 3574) POCT PREG LOT # (test code = 3575) POCT PREG TEST DATE (test code = 3576) [facility] [id number] 18:36:00 Test Item Value Reference Range Interpretation Comments POCT PREG (test code = 1605) Negative On board controls acceptable with C Yes Line (test code = 3574) POCT PREG LOT # (test code = 3575) POCT PREG TEST DATE (test code = 3576) [facility] [id number] 18:36:00 Test Item Value Reference Range Interpretation Comments POCT PREG (test code = 1605) Negative On board controls acceptable with C Yes Line (test code = 3574) POCT PREG LOT # (test code = 3575) POCT PREG TEST DATE (test code = 3576) [facility] [id number] 18:36:00 Test Item Value Reference Range Interpretation Comments POCT PREG (test code = 1605) Negative On board controls acceptable with C Yes Line (test code = 3574) POCT PREG LOT # (test code = 3575) POCT PREG TEST DATE (test code = 3576) [facility] with [id number] 10:12:00 Test Item Value Reference Range Interpretation Comments WBC (test code = See_Comment H [Automated 6690-2) message] The sy stem which generated this result transmitted reference range : 4.30 - 11.10 10*3/?L. The reference range was not used to interpret this result as normal/abnormal . RBC (test code = See_Comment L [Automated 789-8) message] The sy stem which generated this result transmitted reference range : 3.93 - 5.25 10*6/?L. The reference range was not used to interpret this result as normal/abnormal . HGB (test code = 9.1 g/dL 11.6-15 L 718-7) HCT (test code = 28.8 % 35.7-45.2 L 4544-3) MCV (test code = 90.0 fL 80.6-95.5 787-2) MCH (test code = 28.4 pg 25.9-32.8 785-6) MCHC (test code = 31.6 g/dL 31.6-35.1 786-4) RDW-SD (test code = 41.8 fL 39-49.9 12628-9) RDW-CV (test code = 12.8 % 12-15.5 788-0) PLT (test code = See_Comment [Automated 777-3) message] The sy stem which generated this result transmitted reference range : 166 - 358 10*3/ ?L. The reference r blanca was not used to interpret this result as normal/abnormal . MPV (test code = 10.9 fL 9.5-12.9 06841-0) NRBC/100 WBC (test See_Comment [Automat ed code = 3150655694) message] The system which generated this result transmitted reference range : 0.0 - 10.0 /100 WBCs. The refer ence range was not u sed to interpret th is result as normal/abnormal . NRBC x10^3 (test code <0.01 See_Comment [Auto mated = 3013819752) message] The s ystem which generated this result transmitted reference range : 10*3/?L. The reference range was not used to interpret this result as normal/abnormal . GRAN MAT (NEUT) % 71.4 % (test code = 770-8) IMM GRAN % (test code 1.40 % = 4583188651) LYMPH % (test code = 19.1 % 736-9) MONO % (test code = 6.2 % 5905-5) EOS % (test code = 1.7 % 713-8) BASO % (test code = 0.2 % 706-2) GRAN MAT x10^3(ANC) 9.78 10*3/uL 1.88-7.09 H (test code = 7739479908) IMM GRAN x10^3 (test 0.19 10*3/uL 0-0.06 H code = 3710478541) LYMPH x10^3 (test code 2.62 10*3/uL 1.32-3.29 = 731-0) MONO x10^3 (test code 0.85 10*3/uL 0.33-0.92 = 742-7) EOS x10^3 (test code = 0.23 10*3/uL 0.03-0.39 711-2) BASO x10^3 (test code 0.03 10*3/uL 0.01-0.07 = 704-7) Lab Interpretation Abnormal (test code = 86542-9) [facility] SYPHILIS [id number] 15:01:00 Test Item Value Reference Range Interpretation Comments Syphilis IgG/IgM (test Non-reactive Non-reactive code = 72871-5) DERIK (test code = DERIK) Non-reactive - No serologic evidence of T. pallidum infection. Cannot exclude incubating or early syphilis. Submit a second specimen in 2-4 weeks if syphilis is clinically suspected. Equivocal - Further testing to follow. Reactive - Further testing to follow. Lab Interpretation (test Normal code = 60468-8) [facility] IMMUNE [id number] 09:10:55 Test Item Value Reference Range Interpretation Comments RHIG CANDIDATE? No- see comment Patient i s not a (test code = candidate for R hIg- 5055) Patient is Rh Positive.Perfor med at [facility] Laboratory Services - [facility] Blood [address] [place] [address]Zlpi Free: [phone] A No. [id number] [facility] CORD [id number] 05:59:00 Test Item Value Reference Range Interpretation Comments VENOUS BASE EXCESS, mEq/L CORD (test code = 6804603913) VENOUS PH, CORD (test 7.25-7.45 code = 4486311231) VENOUS PC02, CORD See_Comment [Automate d message] The (test code = system which ge nerated 2816730619) this result tra nsmitted reference range : 27 - 49 mmHg. The refer ence range was not used to interpret this result as normal/abnormal . VENOUS PO2, CORD (test See_Comment [Aut omated message] The code = 6512110350) system [facility] generated this result tra nsmitted reference range : 17 - 41 mmHg. The refer ence range was not used to interpret this result as normal/abnormal . VENOUS BICARBONATE, See_Comment [Automa jakub message] The CORD (test code = system whi ch generated 7181772824) this result tra nsmitted reference range : 12 - 29 mEq/L. The refe rence range was not used to interpret this result as normal/abnormal . [facility] CORD [id number] 05:56:00 Test Item Value Reference Range Interpretation Comments BASE EXCESS, CORD mEq/L (test code = 8385626932) AC PH, CORD (BEAKER) 7.18-7.38 (test code = 8657042341) PC02, CORD (test code See_Comment [Auto mated message] The = 3182041744) system which g enerated this result transmit jakub reference range : 32 - 66 mmHg. The refer ence range was not used to interpret this result as normal/abnormal . PO2, CORD (test code See_Comment [Autom ated message] The = 4339945986) system which g enerated this result transmit jakub reference range : 10 - 30 mmHg. The refer ence range was not used to interpret this result as normal/abnormal . BICARBONATE, CORD See_Comment [Automate d message] The (test code = system which ge nerated this 5289682249) result transmit jakub reference range : 17 - 27 mEq/L. The refe rence range was not used to interpret this result as normal/abnormal . [facility]and[facility]atitis B Surface [id number] 17:02:00 Test Item Value Reference Range Interpretation Comments HBsAg Semi-Quantitative (test code = Negative Negative 5195-3) [facility] Screen - ONCE [id number] 16:33:18 Test Item Value Reference Range Interpretation Comments ABO & RH (test code O POSITIVE Performe d at [facility] = 20) Laboratory Serv [facility] Blood Bank3 [address] [facility] s [address]Fogt Free: [phone] A No. [id number] IAT (test code = Negative Performed a t [facility] 1185) Laboratory Serv [facility] Blood Bank3 [address] [facility] s [address]Rxae Free: [phone] A No. [id number] [facility] (ID NOW RAPID TESTING)2020 13:48:00 Test Item Value Reference Range Interpretation Comments SARS-CoV-2 Rapid ID NOW Not Detected Not Detected (test code = 84941-2) DERIK (test code = DERIK) ID NOW COVID-19 Assay is an isothermal nucleic acid amplification test intended for the qualitative detection of nucleic acid from SARS-CoV-2 viral RNA in nasopharyngeal (MAJOR LEAG[employer] BASEB[employer] UMPIRE) specimens. It is used under Emergency Use Authorization (EUA) by FDA. The limit of detection (LOD) of the assay is 125 Genome Equivalents/mL. A positive result is indicative of the presence of SARS-CoV-2 RNA. ?Clinical correlation with patient history and other diagnostic information is necessary to determine patient infection status. A negative (Not Detected) result does not preclude SARS-CoV-2 infection. In patients with clinical symptoms and other tests that are consistent with SARS-CoV-2 infection, negative results should be treated as presumptive negative and a new specimen should be tested with alternative PCR molecular test. Invalid: Please collect a new specimen for repeat patient testing if clinically indicated. Lab Interpretation Normal (test code = 87410-8) [facility] W SPECIFIC [id number] 18:42:00 Test Item Value Reference Range Interpretation Comments POCT U SP GRAV (test code = 3255) . 1.005-1.025 POCT PH U (test code = 3254) . 5-8 POCT U LEUK EST (test code = 3263) . Negative - Negative POCT U NIT (test code = 3262) . Negative - Negative POCT U PROT (test code = 3259) Trace Negative - Negative POCT U GLU (test code = 3256) Neg Negative - Negative POCT U KETONE (test code = 3258) . Negative - Negative POCT U UROBILI (test code = 3260) . 0.2-1 POCT U BILI (test code = 3261) . Negative - Negative POCT U BLD (test code = 3257) . Negative - Negative POCT U COLOR (test code = 3266) POCT U APPEAR (test code = 3267) [facility]andGC & CHLAMYDIA AMPLIFIED [id number] 18:11:00 Test Item Value Reference Range Interpretation Comments C. trachomatis Nucleic Negative Negative Acid (test code = 33168-6) N. gonorrhoeae Nucleic Negative Negative Acid (test code = 01477-6) DERIK (test code = DERIK) Reliable results are dependent on adequate specimen collection. ? A positive result obtained from a patient after therapeutic treatment cannot be interpreted as indicating the presence of viable organisms. ?For patients on whom a false positive result may have adverse psychosocial impact, retesting is advised. Indeterminate: Unable to generate a valid test result on this specimen. ?Please submit a new specimen for repeat testing if clinically indicated. Chlamydia trachomatis/Neisseria gonorrhoeae nucleic acid amplification testing (NAAT) has not been validated for medico-legal specimens (sexual abuse in monique-pubertal and pre-pubertal children, sexual assault, and legal cases). ?Culture for Chlamydia trachomatis and/or Neisseria gonorrhoeae from clinically appropriate sites is the method of choice in these cases. ? Results from this testing should be interpreted in conjunction with other laboratory and clinical data available to the clinician.For females in general, a urine specimen is a second-line option because it is considered less sensitive than a cervical swab for Chlamydia trachomatis and/or Neisseria gonorrhoeae NAAT. Lab Interpretation Normal (test code = 97367-8) [facility]and[facility]ARS-COV-2 [id number] 10:56:00 Test Item Value Reference Range Interpretation Comments CoV-2 IgG (test code Negative Negative Negativ e result = 12602-7) does not rule o ut acute SARS-CoV- 2 infection. Clinical correlation as well as molecul ar diagnostic test are recommended to rule out acu te infection if clinically indicated. DERIK (test code = DERIK) This test has been approved by FDA for emergency use. Lab Interpretation Normal (test code = 61814-1) [facility] WITH [id number] 02:49:00 Test Item Value Reference Range Interpretation Comments WBC (test code = See_Comment [Automated 7190-2) message] The sy stem which generated this result transmitted reference range : 4.30 - 11.10 10*3/?L. The reference range was not used to interpret this result as normal/abnormal . RBC (test code = See_Comment L [Automated 509-8) message] The sy stem which generated this result transmitted reference range : 3.93 - 5.25 10*6/?L. The reference range was not used to interpret this result as normal/abnormal . HGB (test code = 10.6 g/dL 11.6-15 L 718-7) HCT (test code = 32.9 % 35.7-45.2 L 4544-3) MCV (test code = 90.6 fL 80.6-95.5 787-2) MCH (test code = 29.2 pg 25.9-32.8 785-6) MCHC (test code = 32.2 g/dL 31.6-35.1 786-4) RDW-SD (test code = 41.0 fL 39-49.9 54096-5) RDW-CV (test code = 12.3 % 12-15.5 788-0) PLT (test code = See_Comment [Automated 777-3) message] The sy stem which generated this result transmitted reference range : 166 - 358 10*3/ ?L. The reference r blanca was not used to interpret this result as normal/abnormal . MPV (test code = 10.5 fL 9.5-12.9 46548-4) NRBC/100 WBC (test See_Comment [Automat ed code = 9274920059) message] The system which generated this result transmitted reference range : 0.0 - 10.0 /100 WBCs. The refer ence range was not u sed to interpret th is result as normal/abnormal . NRBC x10^3 (test code <0.01 See_Comment [Auto mated = 4840949322) message] The s ystem which generated this result transmitted reference range : 10*3/?L. The reference range was not used to interpret this result as normal/abnormal . GRAN MAT (NEUT) % 74.6 % (test code = 770-8) IMM GRAN % (test code 1.00 % = 8919739204) LYMPH % (test code = 15.9 % 736-9) MONO % (test code = 7.2 % 5905-5) EOS % (test code = 1.0 % 713-8) BASO % (test code = 0.3 % 706-2) GRAN MAT x10^3(ANC) 6.80 10*3/uL 1.88-7.09 (test code = 1711773745) IMM GRAN x10^3 (test 0.09 10*3/uL 0-0.06 H code = 0441176641) LYMPH x10^3 (test code 1.45 10*3/uL 1.32-3.29 = 731-0) MONO x10^3 (test code 0.66 10*3/uL 0.33-0.92 = 742-7) EOS x10^3 (test code = 0.09 10*3/uL 0.03-0.39 711-2) BASO x10^3 (test code 0.03 10*3/uL 0.01-0.07 = 704-7) Lab Interpretation Abnormal (test code = 30364-8) [facility] URINALYSIS W SPECIFIC [id number] 18:50:00 Test Item Value Reference Range Interpretation Comments POCT U SP GRAV (test code = 3255) . 1.005-1.025 POCT PH U (test code = 3254) . 5-8 POCT U LEUK EST (test code = 3263) . Negative - Negative POCT U NIT (test code = 3262) . Negative - Negative POCT U PROT (test code = 3259) Trace Negative - Negative POCT U GLU (test code = 3256) Neg Negative - Negative POCT U KETONE (test code = 3258) . Negative - Negative POCT U UROBILI (test code = 3260) . 0.2-1 POCT U BILI (test code = 3261) . Negative - Negative POCT U BLD (test code = 3257) . Negative - Negative POCT U COLOR (test code = 3266) POCT U APPEAR (test code = 3267) [facility] URINALYSIS W SPECIFIC [id number] 16:20:00 Test Item Value Reference Range Interpretation Comments POCT U SP GRAV (test code = . 1.005-1.025 A 3255) POCT PH U (test code = 3254) 8 mg/dl 5-8 POCT U LEUK EST (test code = 2+ Negative - Negative 3263) POCT U NIT (test code = 3262) neg Negative - Negative POCT U PROT (test code = 3259) trace Negative - Negative POCT U GLU (test code = 3256) neg Negative - Negative POCT U KETONE (test code = 3258) ne Negative - Negative POCT U UROBILI (test code = . 0.2-1 3260) POCT U BILI (test code = 3261) . Negative - Negative POCT U BLD (test code = 3257) neg Negative - Negative POCT U COLOR (test code = 3266) POCT U APPEAR (test code = 3267) Lab Interpretation (test code = Abnormal 27860-2) [facility] URINALYSIS W SPECIFIC [id number] 16:20:00 Test Item Value Reference Range Interpretation Comments POCT U SP GRAV (test code = . 1.005-1.025 A 3255) POCT PH U (test code = 3254) 8 mg/dl 5-8 POCT U LEUK EST (test code = 2+ Negative - Negative 3263) POCT U NIT (test code = 3262) neg Negative - Negative POCT U PROT (test code = 3259) trace Negative - Negative POCT U GLU (test code = 3256) neg Negative - Negative POCT U KETONE (test code = 3258) ne Negative - Negative POCT U UROBILI (test code = . 0.2-1 3260) POCT U BILI (test code = 3261) . Negative - Negative POCT U BLD (test code = 3257) neg Negative - Negative POCT U COLOR (test code = 3266) POCT U APPEAR (test code = 3267) Lab Interpretation (test code = Abnormal 57177-4) [facility] URINALYSIS W SPECIFIC [id number] 16:20:00 Test Item Value Reference Range Interpretation Comments POCT U SP GRAV (test code = . 1.005-1.025 A 3255) POCT PH U (test code = 3254) 8 mg/dl 5-8 POCT U LEUK EST (test code = 2+ Negative - Negative 3263) POCT U NIT (test code = 3262) neg Negative - Negative POCT U PROT (test code = 3259) trace Negative - Negative POCT U GLU (test code = 3256) neg Negative - Negative POCT U KETONE (test code = 3258) ne Negative - Negative POCT U UROBILI (test code = . 0.2-1 3260) POCT U BILI (test code = 3261) . Negative - Negative POCT U BLD (test code = 3257) neg Negative - Negative POCT U COLOR (test code = 3266) POCT U APPEAR (test code = 3267) Lab Interpretation (test code = Abnormal 68758-8) [facility] URINALYSIS W SPECIFIC [id number] 16:20:00 Test Item Value Reference Range Interpretation Comments POCT U SP GRAV (test code = . 1.005-1.025 A 3255) POCT PH U (test code = 3254) 8 mg/dl 5-8 POCT U LEUK EST (test code = 2+ Negative - Negative 3263) POCT U NIT (test code = 3262) neg Negative - Negative POCT U PROT (test code = 3259) trace Negative - Negative POCT U GLU (test code = 3256) neg Negative - Negative POCT U KETONE (test code = 3258) ne Negative - Negative POCT U UROBILI (test code = . 0.2-1 3260) POCT U BILI (test code = 3261) . Negative - Negative POCT U BLD (test code = 3257) neg Negative - Negative POCT U COLOR (test code = 3266) POCT U APPEAR (test code = 3267) Lab Interpretation (test code = Abnormal 35598-8) [facility] URINALYSIS W SPECIFIC [id number] 19:14:00 Test Item Value Reference Range Interpretation Comments POCT U SP GRAV (test code = 3255) . 1.005-1.025 POCT PH U (test code = 3254) . 5-8 POCT U LEUK EST (test code = 3263) . Negative - Negative POCT U NIT (test code = 3262) . Negative - Negative POCT U PROT (test code = 3259) Trace Negative - Negative POCT U GLU (test code = 3256) Neg Negative - Negative POCT U KETONE (test code = 3258) . Negative - Negative POCT U UROBILI (test code = 3260) . 0.2-1 POCT U BILI (test code = 3261) . Negative - Negative POCT U BLD (test code = 3257) . Negative - Negative POCT U COLOR (test code = 3266) POCT U APPEAR (test code = 3267) [facility] URINALYSIS W SPECIFIC [id number] 15:04:00 Test Item Value Reference Range Interpretation Comments POCT U SP GRAV (test code = 3255) . 1.005-1.025 POCT PH U (test code = 3254) . 5-8 POCT U LEUK EST (test code = 3263) . Negative - Negative POCT U NIT (test code = 3262) . Negative - Negative POCT U PROT (test code = 3259) Trace Negative - Negative POCT U GLU (test code = 3256) Neg Negative - Negative POCT U KETONE (test code = 3258) . Negative - Negative POCT U UROBILI (test code = 3260) . 0.2-1 POCT U BILI (test code = 3261) . Negative - Negative POCT U BLD (test code = 3257) . Negative - Negative POCT U COLOR (test code = 3266) POCT U APPEAR (test code = 3267) [facility] URINALYSIS W SPECIFIC [id number] 19:10:00 Test Item Value Reference Range Interpretation Comments POCT U SP GRAV (test code = 3255) . 1.005-1.025 POCT PH U (test code = 3254) . 5-8 POCT U LEUK EST (test code = 3263) . Negative - Negative POCT U NIT (test code = 3262) . Negative - Negative POCT U PROT (test code = 3259) Trace Negative - Negative POCT U GLU (test code = 3256) Neg Negative - Negative POCT U KETONE (test code = 3258) . Negative - Negative POCT U UROBILI (test code = 3260) . 0.2-1 POCT U BILI (test code = 3261) . Negative - Negative POCT U BLD (test code = 3257) . Negative - Negative POCT U COLOR (test code = 3266) POCT U APPEAR (test code = 3267) [facility] URINALYSIS W SPECIFIC [id number] 19:10:00 Test Item Value Reference Range Interpretation Comments POCT U SP GRAV (test code = 3255) . 1.005-1.025 POCT PH U (test code = 3254) . 5-8 POCT U LEUK EST (test code = 3263) . Negative - Negative POCT U NIT (test code = 3262) . Negative - Negative POCT U PROT (test code = 3259) Trace Negative - Negative POCT U GLU (test code = 3256) Neg Negative - Negative POCT U KETONE (test code = 3258) . Negative - Negative POCT U UROBILI (test code = 3260) . 0.2-1 POCT U BILI (test code = 3261) . Negative - Negative POCT U BLD (test code = 3257) . Negative - Negative POCT U COLOR (test code = 3266) POCT U APPEAR (test code = 3267) [facility] URINALYSIS W SPECIFIC [id number] 15:54:00 Test Item Value Reference Range Interpretation Comments POCT U SP GRAV (test code = 3255) . 1.005-1.025 POCT PH U (test code = 3254) . 5-8 POCT U LEUK EST (test code = 3263) . Negative - Negative POCT U NIT (test code = 3262) . Negative - Negative POCT U PROT (test code = 3259) Trace Negative - Negative POCT U GLU (test code = 3256) Neg Negative - Negative POCT U KETONE (test code = 3258) . Negative - Negative POCT U UROBILI (test code = 3260) . 0.2-1 POCT U BILI (test code = 3261) . Negative - Negative POCT U BLD (test code = 3257) . Negative - Negative POCT U COLOR (test code = 3266) POCT U APPEAR (test code = 3267) [facility] URINALYSIS W SPECIFIC [id number] 15:54:00 Test Item Value Reference Range Interpretation Comments POCT U SP GRAV (test code = 3255) . 1.005-1.025 POCT PH U (test code = 3254) . 5-8 POCT U LEUK EST (test code = 3263) . Negative - Negative POCT U NIT (test code = 3262) . Negative - Negative POCT U PROT (test code = 3259) Trace Negative - Negative POCT U GLU (test code = 3256) Neg Negative - Negative POCT U KETONE (test code = 3258) . Negative - Negative POCT U UROBILI (test code = 3260) . 0.2-1 POCT U BILI (test code = 3261) . Negative - Negative POCT U BLD (test code = 3257) . Negative - Negative POCT U COLOR (test code = 3266) POCT U APPEAR (test code = 3267) [facility] [facility] W SPECIFIC [id number] 15:54:00 Test Item Value Reference Range Interpretation Comments POCT U SP GRAV (test code = 3255) . 1.005-1.025 POCT PH U (test code = 3254) . 5-8 POCT U LEUK EST (test code = 3263) . Negative - Negative POCT U NIT (test code = 3262) . Negative - Negative POCT U PROT (test code = 3259) Trace Negative - Negative POCT U GLU (test code = 3256) Neg Negative - Negative POCT U KETONE (test code = 3258) . Negative - Negative POCT U UROBILI (test code = 3260) . 0.2-1 POCT U BILI (test code = 3261) . Negative - Negative POCT U BLD (test code = 3257) . Negative - Negative POCT U COLOR (test code = 3266) POCT U APPEAR (test code = 3267) [facility] URINALYSIS W SPECIFIC [id number] 15:54:00 Test Item Value Reference Range Interpretation Comments POCT U SP GRAV (test code = 3255) . 1.005-1.025 POCT PH U (test code = 3254) . 5-8 POCT U LEUK EST (test code = 3263) . Negative - Negative POCT U NIT (test code = 3262) . Negative - Negative POCT U PROT (test code = 3259) Trace Negative - Negative POCT U GLU (test code = 3256) Neg Negative - Negative POCT U KETONE (test code = 3258) . Negative - Negative POCT U UROBILI (test code = 3260) . 0.2-1 POCT U BILI (test code = 3261) . Negative - Negative POCT U BLD (test code = 3257) . Negative - Negative POCT U COLOR (test code = 3266) POCT U APPEAR (test code = 3267) [facility] URINALYSIS W/O SPECIFIC [id number] 20:10:00 Test Item Value Reference Range Interpretation Comments POCT PH U (test code = 3254) 6 mg/dl 5-8 POCT U LEUK EST (test code = Trace Negative - Negative 3263) POCT U NIT (test code = 3262) Neg Negative - Negative POCT U PROT (test code = 3259) Trace Negative - Negative POCT U GLU (test code = 3256) Neg Negative - Negative POCT U KETONE (test code = 3258) Small Negative - Negative POCT U BLD (test code = 3257) Neg Negative - [facility] [id number] 20:10:00 Test Item Value Reference Range Interpretation Comments POCT PH U (test code = 3254) 6 mg/dl 5-8 POCT U LEUK EST (test code = Trace Negative - Negative 3263) POCT U NIT (test code = 3262) Neg Negative - Negative POCT U PROT (test code = 3259) Trace Negative - Negative POCT U GLU (test code = 3256) Neg Negative - Negative POCT U KETONE (test code = 3258) Small Negative - Negative POCT U BLD (test code = 3257) Neg Negative - Negative [facility] [id number] 20:09:00 Test Item Value Reference Range Interpretation Comments POCT PREG (test code = 1605) Positive On board controls acceptable with C Yes Line (test code = 3574) POCT PREG LOT # (test code = 3575) POCT PREG TEST DATE (test code = 3576) [facility] [id number] 20:09:00 Test Item Value Reference Range Interpretation Comments POCT PREG (test code = 1605) Positive On board controls acceptable with C Yes Line (test code = 3574) POCT PREG LOT # (test code = 3575) POCT PREG TEST DATE (test code = 3576) [facility]
[2022-03-13] MEDS ORDERED: HYDROCODONE/APAP 5/325 MG TAB ONE (18:43)
--- NOTE | 2022-03-13 19:14 | RAD REPORT ---
EXAM DESCRIPTION: RAD - Wrist Left 3 View - 03/13/2022 7:05 pm CLINICAL HISTORY: PAIN COMPARISON: No comparisons FINDINGS: No acute fracture. No malalignment. No significant focal degenerative changes. IMPRESSION: No acute osseous abnormality involving the left wrist.
--- NOTE | 2022-03-13 19:17 | ER ---
Nurse's Notes [facility] Name: Autumn Lauren Age: 21 yrs Sex: Female : 2000 Arrival Date: 03/13/2022 Time: 17:48 Bed 12 Private MD: Diagnosis: Pain in left wrist Presentation: 03/13 18:20 Chief complaint: Patient states: L wrist severe pain for 1 day. No known specific ll1 injury. Coronavirus screen: Vaccine status: Patient reports being unvaccinated. Client denies travel out of the [place] in the last 14 days. At this time, the client does not indicate any symptoms associated with coronavirus-19. Ebola Screen: Patient denies travel to an Ebola-affected area in the 21 days before illness onset. Initial Sepsis Screen: Does the patient meet any 2 criteria? No. Patient's initial sepsis screen is negative. Does the patient have a suspected source of infection? Yes: Bone or joint infection. Risk Assessment: Do you want to hurt yourself or someone else? Patient reports no desire to harm self or others. Onset of symptoms was March 13, 2022. 18:20 Method Of Arrival: Ambulatory ll1 18:20 Acuity: KIM 4 ll1 Historical: - Allergies: 18:21 No Known Allergies; ll1 - PMHx: 18:21 None; ll1 - PSHx: 18:21 section; ll1 - Immunization history:: Client reports having NOT received the Covid vaccine. - Social history:: Smoking status: Reported history of juuling and/or vaping. Screenin:30 Abuse screen: Denies threats or abuse. Denies injuries from another. Nutritional hb screening: No deficits noted. Tuberculosis screening: No symptoms or risk factors identified. Fall Risk None identified. Assessment: 19:30 General: Appears in no apparent distress. Behavior is calm, cooperative. Pain: Pain hb currently is 4 out of 10 on a pain scale. Neuro: Level of Consciousness is awake, alert, obeys commands, Oriented to person, place, time, situation. 19:30 Cardiovascular: Patient's skin is warm and dry. Respiratory: Respiratory effort is hb even, unlabored, Respiratory pattern is regular, symmetrical. GI: No signs and/or symptoms were reported involving the gastrointestinal system. : No signs and/or symptoms were reported regarding the genitourinary system. EENT: No signs and/or symptoms were reported regarding the EENT system. Derm: Skin is pink, warm \T\ dry. Musculoskeletal: Reports left wrist pain. Vital Signs: 18:20 BP 118 / 91; Pulse 83; Resp 17; Temp 98.1; Pulse Ox 98% ; Weight 81.65 kg; Height 5 ft. ll1 2 in. (157.48 cm); Pain 9/10; 18:20 Body Mass Index 32.92 (81.65 kg, 157.48 cm) ll1 ED Course: 17:48 Patient arrived in ED. am2 17:57 Tequila Simpson FNP-C [facility] snw 17:57 Lucho Morocho MD is Attending Physician. snw 18:19 Arm band placed on. ll1 18:21 Triage completed. ll1 19:06 Wrist Left (3 View) XRAY In Process Unspecified. EDMS 19:30 Patient has correct armband on for positive identification. hb 19:30 No provider procedures requiring assistance completed. Patient did not have IV access hb during this emergency room visit. 19:40 Georgia Gan, RN is Primary Nurse. hb Administered Medications: 18:35 Drug: HYDROcodone-acetaminophen 5 mg-325 mg 1 tabs {Note: rass 0, pain 7/10.} Route: PO;ll1 19:42 Follow up: Response: No adverse reaction hb Medication: 19:30 VIS not applicable for this client. hb Outcome: 19:16 Discharge ordered by MD. snw 19:42 Discharged to home ambulatory, with family. hb 19:42 Condition: stable 19:42 Discharge instructions given to patient, Instructed on discharge instructions, follow up and referral plans. medication usage, Demonstrated understanding of instructions, follow-up care, medications, Prescriptions given X 1. 19:42 Patient left the ED. hb Signatures: Dispatcher [employer] EDMS Tequila Simpson FNP-C [employer]ER-Csnw Georgia Gan RN RN Evonne Kelly am2 Saleem Stallworth RN RN ll1 Corrections: (The following items were deleted from the chart) 18:22 18:20 Resp 17bpm; Temp 98.1F; 81.65 kg; Height 5 ft. 2 in.; BMI: 32.9; Pain 9/10; ll1 ll1
--- NOTE | 2022-03-13 19:17 | EDPHYS ---
Physician Documentation [facility] Name: Autumn Lauren Age: 21 yrs Sex: Female : 2000 Arrival Date: 03/13/2022 Time: 17:48 Bed 12 Private MD: ED Physician Lucho Morocho HPI: 03/13 18:32 This 21 yrs old Female presents to ER via Ambulatory with complaints of Wrist Injury. snw 18:32 The patient or guardian reports decreased range of motion, pain. The complaints affect snw the left wrist diffusely. Context: The problem was sustained at an unknown location, resulted from an unknown cause. Onset: The symptoms/episode began/occurred suddenly, upon awakening. Modifying factors: The symptoms are alleviated by nothing, the symptoms are aggravated by movement. Associated signs and symptoms: The patient has no apparent associated signs or symptoms. The patient has not experienced similar symptoms in the past. It is unknown whether or not the patient has recently seen a physician. denies repetitive activity, denies trauma, did drink ETOH prior to awakening with discomfort. no wrist drop noted. Historical: - Allergies: 18:21 No Known Allergies; ll1 - PMHx: 18:21 None; ll1 - PSHx: 18:21 section; ll1 - Immunization history:: Client reports having NOT received the Covid vaccine. - Social history:: Smoking status: Reported history of juuling and/or vaping. ROS: 18:32 Constitutional: Negative for fever, chills, and weight loss, Eyes: Negative for injury, snw pain, redness, and discharge, ENT: Negative for injury, pain, and discharge, Neck: Negative for injury, pain, and swelling, Cardiovascular: Negative for chest pain, palpitations, and edema, Respiratory: Negative for shortness of breath, cough, wheezing, and pleuritic chest pain, Abdomen/GI: Negative for abdominal pain, nausea, vomiting, diarrhea, and constipation, Back: Negative for injury and pain, : Negative for injury, bleeding, discharge, and swelling, Skin: Negative for injury, rash, and discoloration, Neuro: Negative for headache, weakness, numbness, tingling, and seizure, Psych: Negative for depression, anxiety, suicide ideation, homicidal ideation, and hallucinations. 18:32 MS/extremity: Positive for injury or acute deformity, decreased range of motion, pain, swelling, tenderness, of the palmar aspect of left wrist. Exam: 18:28 Hand exam: ROM: limited active range of motion, limited passive range of motion, snw limited active range of motion due to pain, in the heel of left hand, limited passive range of motion due to pain, Circulation is intact in all extremities. sensation intact. Compartment Syndrome exam of affected extremity: is normal. 18:28 Constitutional: This is a well developed, well nourished patient who is awake, alert, and in no acute distress. Head/Face: Normocephalic, atraumatic. Eyes: Pupils equal round and reactive to light, extra-ocular motions intact. Lids and lashes normal. Conjunctiva and sclera are non-icteric and not injected. Cornea within normal limits. Periorbital areas with no swelling, redness, or edema. ENT: Nares patent. No nasal discharge, no septal abnormalities noted. Tympanic membranes are normal and external auditory canals are clear. Oropharynx with no redness, swelling, or masses, exudates, or evidence of obstruction, uvula midline. Mucous membranes moist. Neck: Trachea midline, no thyromegaly or masses palpated, and no cervical lymphadenopathy. Supple, full range of motion without nuchal rigidity, or vertebral point tenderness. No Meningismus. Chest/axilla: Normal chest wall appearance and motion. Nontender with no deformity. No lesions are appreciated. Cardiovascular: Regular rate and rhythm with a normal S1 and S2. No gallops, murmurs, or rubs. Normal PMI, no JVD. No pulse deficits. Respiratory: Lungs have equal breath sounds bilaterally, clear to auscultation and percussion. No rales, rhonchi or wheezes noted. No increased work of breathing, no retractions or nasal flaring. Abdomen/GI: Soft, non-tender, with normal bowel sounds. No distension or tympany. No guarding or rebound. No evidence of tenderness throughout. Back: No spinal tenderness. No costovertebral tenderness. Full range of motion. Skin: Warm, dry with normal turgor. Normal color with no rashes, no lesions, and no evidence of cellulitis. Neuro: Awake and alert, GCS 15, oriented to person, place, time, and situation. Cranial nerves II-XII grossly intact. Motor strength 5/5 in all extremities. Sensory grossly intact. Cerebellar exam normal. Normal gait. Psych: Awake, alert, with orientation to person, place and time. Behavior, mood, and affect are within normal limits. 18:28 Musculoskeletal/extremity: Extremities: grossly normal except: noted in the heel of left hand and palmar aspect of left wrist: decreased ROM, pain, ROM: limited active range of motion due to pain, limited passive range of motion due to pain, Circulation is intact in all extremities. Sensation intact. Vital Signs: 18:20 BP 118 / 91; Pulse 83; Resp 17; Temp 98.1; Pulse Ox 98% ; Weight 81.65 kg; Height 5 ft. ll1 2 in. (157.48 cm); Pain 9/10; 18:20 Body Mass Index 32.92 (81.65 kg, 157.48 cm) ll1 MDM: 18:26 Patient medically screened. snw 19:14 Data reviewed: vital signs, nurses notes, radiologic studies. Data interpreted: Pulse snw oximetry: on room air is 98 %. Interpretation: normal. Counseling: I had a detailed discussion with the patient and/or guardian regarding: the historical points, exam findings, and any diagnostic results supporting the discharge/admit diagnosis, the presence of at least one elevated blood pressure reading (>120/80) during this emergency department visit, the need for outpatient follow up, for definitive care, to return to the emergency department if symptoms worsen or persist or if there are any questions or concerns that arise at home. Response to treatment: the patient's symptoms have markedly improved after treatment. 03/13 18:27 Order name: Wrist Left (3 View) XRAY; Complete Time: 19:17 snw 03/13 18:28 Order name: Splint - Wrist; Complete Time: 19:30 snw 03/13 18:28 Order name: Ice pack; Complete Time: 18:30 snw Administered Medications: 18:35 Drug: HYDROcodone-acetaminophen 5 mg-325 mg 1 tabs {Note: rass 0, pain 7/10.} Route: PO;ll1 19:42 Follow up: Response: No adverse reaction hb Disposition Summary: 03/13/22 19:16 Discharge Ordered Location: Home snw Condition: Stable snw Diagnosis - Pain in left wrist snw Followup: snw - With: Emergency Department - When: As needed - Reason: Worsening of condition Followup: snw - With: Private Physician - When: As needed - Reason: Discharge Instructions: - Discharge Summary Sheet snw - Musculoskeletal Pain snw - Wrist Splint, Adult snw - How to Use Cold Therapy, [id number] snw - Wrist Pain, Adult, [id number] snw - Carpal Tunnel Syndrome, [id number] snw Forms: - Medication Reconciliation Form snw - Thank You Letter snw - Antibiotic Education snw - Prescription Opioid Use snw Prescriptions: - Mobic 7.5 mg Oral Tablet - take 1 tablet by ORAL route once daily take with food; 20 tablet; Refills: 0, snw Product Selection Permitted Addendum: 03/14/2022 21:46 Co-signature as Attending Physician, Lucho Morocho MD. r n Signatures: Dispatcher [employer] EDTequila Ragland, [employer] EQUIPMENT TECHNICIAN-C [employer] S[employer] EQUIPMENT TECHNICIAN-Csnw Lucho Morocho MD MD rn Lewis, Lynsay, RN RN 1 Georgia Gan RN
[2022-03-13 23:01] VITALS: BP 118/91; TEMP 98.1; O2SAT 98
== END 2022-03-13 19:42 | disposition home or self-care (01) ==
LOC: ER 17:45
DX: M25.532 Pain in left wrist (principal)
CPT/HCPCS: 99283